=== PATIENT | male | born 1950 | race Hispanic/Latino ===

== ENCOUNTER 2017-03-05 07:35 | Emergency (ER) | payer SELFPAY ==
[2017-03-05 07:41] VITALS: BP 158/81; PULSE 71; RESP 20; TEMP 97.7; O2SAT 99
[2017-03-05] MEDS ORDERED: Alum-Mag Hydrox-Simethicone Susp (30 mL) PO STA (08:15)
--- NOTE | 2017-03-05 08:20 | C.PDOC ---
History Of Present Illness 66 year old male presents to ED for evaluation of constipation for the past few days. Notes that his last normal bowel movement was 3 weeks ago. He reports taking laxative 3 days ago and having small loose stools. Patient also complains of gurgling sensation to left side of his abdomen. Otherwise, denies blood in stool, hematuria, back pain, nausea, vomiting, or fever. Time Seen by Provider: 03/05/17 08:00 Chief Complaint (Nursing): Abdominal Pain History Per: Patient History/Exam Limitations: no limitations Onset/Duration Of Symptoms: Days Current Symptoms Are (Timing): Still Present Radiation Of Pain To:: None Associated Symptoms: Constipation, Urinary Symptoms. denies: Fever, Chills, Nausea, Vomiting, Diarrhea, Loss Of Appetite, Back Pain, Chest Pain Exacerbating Factors: None Alleviating Factors: None Recent travel outside of the [place]: No Additional History Per: Patient Past Medical History Reviewed: Historical Data, Nursing Documentation, Vital Signs Vital Signs: Last Vital Signs Temp 97.7 F 03/05/17 07:40 Pulse 71 03/05/17 07:40 Resp 20 03/05/17 07:40 BP 158/81 H 03/05/17 07:40 Pulse Ox 99 03/05/17 08:25 - Medical History PMH: No Chronic Diseases Surgical History: No Surg Hx Family History: States: Unknown Family Hx - Social History Hx Tobacco Use: Yes (heavy smoker) Hx Alcohol Use: Yes Hx Substance Use: No - Immunization History Hx Tetanus Toxoid Vaccination: No Hx Influenza Vaccination: No Hx Pneumococcal Vaccination: No Review Of Systems Except As Marked, All Systems Reviewed And Found Negative. Constitutional: Negative for: Fever, Chills Gastrointestinal: Positive for: Abdominal Pain, Constipation. Negative for: Nausea, Vomiting, Diarrhea, Hematochezia Genitourinary: Positive for: Dysuria. Negative for: Frequency, Hematuria, Penile Discharge Musculoskeletal: Negative for: Back Pain Physical Exam - Physical Exam Appears: Non-toxic, No Acute Distress Skin: Normal Color, Warm, Dry Head: Atraumatic, Normacephalic Eye(s): bilateral: Normal Inspection Oral Mucosa: Moist Neck: Normal ROM, Supple Chest: Symmetrical Cardiovascular: Rhythm Regular, No Murmur Respiratory: Normal Breath Sounds, No Rales, No Rhonchi, No Wheezing Gastrointestinal/Abdominal: Soft, No Tenderness, No Guarding, No Rebound Back: No CVA Tenderness Extremity: Normal ROM, No Deformity, No Swelling Neurological/Psych: Oriented x3, Normal Speech Gait: Steady ED Course And Treatment O2 Sat by Pulse Oximetry: 99 (RA) Pulse Ox Interpretation: Normal Medical Decision Making Medical Decision Making: Plan: * Obstructive series x-ray * Maalox * Reassess XRay reviewed and shows no signs of obstruction and has fecal retention. Patient advised to increase water and fiber intake. Patient stable for discharge and will give Rx for mag citrate. Advise follow up with PCP. Disposition Counseled Patient/Family Regarding: Diagnosis, Need For Followup, Rx Given - Disposition Referrals: [facility] [Outside] [facility] [Outside] Disposition: HOME/ ROUTINE Disposition Time: 09:00 Condition: GOOD Additional Instructions: Follow up with your primary medical doctor or clinic in 2-5 days for further evaluation. Take medications as indicated to help with constipation. Drink plenty of fluids and eat more fiber. IF symptoms do not improve or symptoms worsen in 1-2 days return to the emergency department. Prescriptions: Docusate [Colace] 100 mg PO Q8 #30 cap Magnesium Citrate [Citrate of Mag] 300 ml PO ONCE PRN #1 bottle PRN Reason: Constipation Instructions: Constipation (DC), High Fiber Diet (ED) Forms: [employer] (Tajik) - POA Present On Arrival: None - Clinical Impression Clinical Impression: Constipation - PA / APPRAISER PERSONAL PROPERTY / Resident Statement MD/DO has reviewed & agrees with the documentation as recorded. - Scribe Statement The provider has reviewed the documentation as recorded by the Sujata Garcia All medical record entries made by the Sujata were at my direction and personally dictated by me. I have reviewed the chart and agree that the record accurately reflects my personal performance of the history, physical exam, medical decision making, and the department course for this patient. I have also personally directed, reviewed, and agree with the discharge instructions and disposition.
[2017-03-05] MEDS ORDERED: Aluminum Hydroxide/Magnesium Hydroxide Susp (30 mL) ONE ×2 (08:35→08:53)
--- NOTE | 2017-03-05 10:19 | RAD ---
PROCEDURE: Radiographs of the chest and abdomen (obstructive series) HISTORY: abd pain constipation COMPARISON: No prior. TECHNIQUE: AP radiograph of the chest, with upright and supine radiographs of the abdomen. FINDINGS: CHEST: Lungs: The lungs are hyperinflated and there is peribronchial thickening with chronic changes in both lungs. . Cardiovascular: Normal size heart. No pulmonary vascular congestion. Pleura: No pleural fluid. No pneumothorax. Other findings: None. ABDOMEN AND PELVIS: Bowel: There is moderate amount of stool in the colon. No evidence of mechanical obstruction. The bowel gas pattern is nonspecific. No differential air-fluid levels. Free air: None. Bones: Within normal limits for the patient's age. Other findings: None. IMPRESSION: Constipation. No evidence of bowel obstruction. COPD. No acute findings.
== END 2017-03-05 09:10 | disposition home or self-care (01) ==
LOC: C.ER 07:35
DX: K59.00 Constipation, unspecified (principal)

== ENCOUNTER 2017-04-05 23:09 | Inpatient (IN) | payer MEDICARE ==
[2017-04-06 00:53] LABS: BASO % 0.5 % (0.0-2.0); EOS # 0.2 K/uL (0.0-0.7); HEMOGLOBIN 13.5 g/dL (12.0-18.0); LYMPH % 24.9 % (20.0-40.0); MEAN CELL VOLUME 87.2 fL (80.0-94.0); MEAN CORPUSCULAR HEMOGLOBIN 29.3 pg (27.0-31.0); MEAN CORPUSCULAR HGB CONC 33.6 g/dL (33.0-37.0); MEAN PLATELET VOLUME 8.3 fL (7.2-11.7); MONO # 0.8 K/uL (0.0-0.8); MONO % 10.1 % (0.0-10.0); NEUT # 4.9 K/uL (1.8-7.0); NEUT % 62.5 % (50.0-75.0); RBC 4.6 Mil/uL (4.40-5.90); RED CELL DISTRIBUTION WIDTH 15.3 % (11.5-14.5); WHITE BLOOD COUNT 7.9 K/uL (4.8-10.8)
[2017-04-06 01:06] LABS: ALB/GLOB RATIO 1.3 (1.0-2.1); ALT/SGPT 33 U/L (21-72); AST/SGOT 29 U/L (17-59); BLOOD UREA NITROGEN 19 mg/dL (9-20); GFR AFRICAN-AMERICAN > 60; GFR NON-AFRICAN AMERICAN > 60; LIPASE 66 U/L (23-300)
[2017-04-06] MEDS ORDERED: Iohexol 240 (50 ml) PO ONE (01:06)
[2017-04-06] MEDS ORDERED: Iohexol 240 (50 ml) ONE (01:13)
--- NOTE | 2017-04-06 01:33 | C.PDOC ---
History Of Present Illness <Ritu Estrada - Last Filed: 04/06/17 06:44> <Cate Razo - Last Filed: 04/06/17 07:33> Patient is a 67 y/o male who presents to the ED with a complaint of constant left lower groin pain all day. Patient notes being very tender but denies any nausea, vomiting, or diarrhea. Patient was seen on 03/05 for constipation and was given docusate. No other physical complaints at this time. (Ritu Estrada N) History Per: Patient History/Exam Limitations: no limitations Onset/Duration Of Symptoms: Hrs (earlier today), Persistent Current Symptoms Are (Timing): Still Present Location Of Pain/Discomfort: Other (lower groin) Associated Symptoms: denies: Nausea, Vomiting, Diarrhea Recent travel outside of the [place]: No <Ritu Estrada - Last Filed: 04/06/17 06:44> <Cate Razo - Last Filed: 04/06/17 07:33> Time Seen by Provider: 04/05/17 23:55 Chief Complaint (Nursing): Abdominal Pain Past Medical History Reviewed: Historical Data, Nursing Documentation, Vital Signs - Medical History PMH: No Chronic Diseases Surgical History: No Surg Hx Family History: States: Unknown Family Hx - Social History Hx Tobacco Use: Yes (heavy smoker) Hx Alcohol Use: No Hx Substance Use: No - Immunization History Hx Tetanus Toxoid Vaccination: No Hx Influenza Vaccination: No Hx Pneumococcal Vaccination: No <Ritu Estrada - Last Filed: 04/06/17 06:44> Vital Signs: Last Vital Signs Temp 98.7 F 04/05/17 23:23 Pulse 78 04/05/17 23:23 Resp 20 04/05/17 23:23 BP 125/70 04/05/17 23:23 Pulse Ox 98 04/06/17 06:47 Review Of Systems Gastrointestinal: Positive for: Abdominal Pain (lower groin pain and tenderness) . Negative for: Nausea, Vomiting, Diarrhea <Ritu Estrada - Last Filed: 04/06/17 06:44> Physical Exam - Physical Exam Appears: Well, Non-toxic, No Acute Distress, In Acute Distress Skin: Normal Color, Warm, Dry Head: Atraumatic, Normacephalic Eye(s): bilateral: Normal Inspection Ear(s): Bilateral: Normal Oral Mucosa: Moist Tongue: Normal Appearing Lips: Normal Appearing Neck: Normal Chest: Symmetrical Cardiovascular: Rhythm Regular, No Murmur Respiratory: Normal Breath Sounds, No Rales, No Rhonchi, No Wheezing Gastrointestinal/Abdominal: Soft, No Tenderness, No Organomegaly, No Mass, No Distention, Guarding, Rebound, No Hernia Male Genital: Normal Inspection, No Testicular Tenderness, No Testicular Swelling Neurological/Psych: Oriented x3, Normal Speech, Normal Cognition <Ritu Estrada - Last Filed: 04/06/17 06:44> ED Course And Treatment - Laboratory Results Result Diagrams: 04/06/17 00:48 04/06/17 00:48 O2 Sat by Pulse Oximetry: 98 Progress Note: CT A/P and CXR ordered. Omnipaque and Toradol adminsitered. Case discussed with instructor adjunct surgical technician at 4:30am. <Ritu Estrada - Last Filed: 04/06/17 06:44> - Laboratory Results Result Diagrams: 04/06/17 00:48 04/06/17 00:48 <Cate Razo - Last Filed: 04/06/17 07:33> Progress <Ritu Estrada - Last Filed: 04/06/17 06:44> - Data Reviewed Data Reviewed: Lab, Diagnostic imaging <Cate Razo - Last Filed: 04/06/17 07:33> - Re-Evaluation Re-evaluation Note: 04/06/17 07:32 S/O PER DR ESTRADA PRIOR D/W DR ARSHAD AWARE OF ER FINDINGS, PT TO BE ADMITTED TO MEDICINE. PER RN PER SIGNOUT, PT ACCEPTED TO DR Vidya GARC[facility]. (Cate Razo) Medical Decision Making <Ritu Estrada - Last Filed: 04/06/17 06:44> <Cate Razo - Last Filed: 04/06/17 07:33> Medical Decision Making: lab results: white count 7.[address] shows free air consistent with perforated viscous./ morphine given/ IV hydrtion given/ broad spectrum abc given. case discussed with surgery. Paged Dr. Nicole for admission x 4 since 5 am pending call back. (Ritu Estrada) Disposition <Ritu Estrada - Last Filed: 04/06/17 06:44> Counseled Patient/Family Regarding: Studies Performed, Diagnosis - Disposition Disposition Time: 07:32 - POA Present On Arrival: None <Cate Razo - Last Filed: 04/06/17 07:33> - Disposition Disposition: HOSPITALIZED Condition: STABLE Forms: [employer] ([place]er) - Clinical Impression Clinical Impression: Abdominal bloating, Abdominal distension, Perforated abdominal viscus, Stricture of sigmoid colon, Abdominal pain, Acute diverticulitis - Scribe Statement The provider has reviewed the documentation as recorded by the Scribe <Ritu Estrada - Last Filed: 04/06/17 06:44> <DungCate - Last Filed: 04/06/17 07:33> - Scribe Statement Luciana To All medical record entries made by the Scribe were at my direction and personally dictated by me. I have reviewed the chart and agree that the record accurately reflects my personal performance of the history, physical exam, medical decision making, and the department course for this patient. I have also personally directed, reviewed, and agree with the discharge instructions and disposition. (Ritu Estrada) Decision To Admit <Ritu Estrada - Last Filed: 04/06/17 06:44> - Pt Status Changed To: Hospital Disposition Of: Inpatient - Admit Certification Admit to Inpatient:: After my assessment, the patient will require hospitalization for at least two midnights. This is because of the severity of symptoms shown, intensity of services needed, and/or the medical risk in this patient being treated as an outpatient. - InPatient: Physician Admission Certification:: SEE NOTE - . Bed Request Type: Regular Admitting Physician: Lucy aGrcia <DungCate - Last Filed: 04/06/17 07:33> - . Patient Diagnosis: Abdominal bloating, Abdominal distension, Perforated abdominal viscus, Stricture of sigmoid colon, Abdominal pain, Acute diverticulitis
[2017-04-06] MEDS ORDERED: Iohexol 350mg/ml 100 ML ONE (02:05)
--- NOTE | 2017-04-06 04:20 | CT ---
EXAM: CT Abdomen and Pelvis With Intravenous Contrast EXAM DATE/TIME: 04/06/2017 12:37 AM CLINICAL HISTORY: 67 years old, male; Pain; Abdominal pain; Patient HX: 01-14-16; Additional info: Abd pain TECHNIQUE: Axial computed tomography images of the abdomen and pelvis with intravenous contrast. All CT scans at this facility use one or more dose reduction techniques, viz.: automated exposure control; ma/kV adjustment per patient size (including targeted exams where dose is matched to indication; i.e. head); or iterative reconstruction technique. Coronal and sagittal reformatted images were created and reviewed. CONTRAST: 100 mL of [id number] administered intravenously. COMPARISON: Prior CT abdomen and pelvis of 2016-01-14 FINDINGS: LOWER THORAX: Small hiatal hernia. ABDOMEN: LIVER: Fatty infiltration of the liver. GALLBLADDER AND BILE DUCTS: No CT evidence of acute cholecystitis. No evidence of significant biliary ductal dilatation. PANCREAS: No CT evidence of acute pancreatitis. SPLEEN: No acute abnormality of the spleen identified. ADRENALS: No acute abnormality of the adrenal glands identified. KIDNEYS AND URETERS: Low density lesions in the kidneys bilaterally, most likely representing cysts. The largest of these, in the left kidney, measures 8 mm. STOMACH AND BOWEL: See below. Marked, segmental wall thickening of the proximal sigmoid colon, associated with infiltration of the pericolonic fat. This was also seen on the prior CT, and is suspicious for a stricture. APPENDIX: Appendix is seen, and is within normal limits in appearance. PELVIS: BLADDER: No acute abnormality of the bladder identified. REPRODUCTIVE: Prostate gland is enlarged. ABDOMEN and PELVIS: INTRAPERITONEAL SPACE: Free intraperitoneal air, compatible with a bowel perforation, in the absence of recent surgery. The site of perforation is most likely the mid descending colon. There are findings suspicious for acute diverticulitis of the mid descending colon. There is pericolonic fat stranding, suspicious for inflammation, and segmental wall thickening, in the vicinity of multiple colonic diverticula. No evidence of focal fluid collection or abscess. BONES/JOINTS: Bony structures appear demineralized. SOFT TISSUES: No acute abnormality of the visualized soft tissues is seen. VASCULATURE: Atherosclerotic calcification. No evidence of abdominal aortic aneurysm. LYMPH NODES: No evidence of diffuse lymphadenopathy. IMPRESSION: - Free intraperitoneal air, compatible with a bowel perforation. The site of perforation appears to be the descending colon, where there is evidence of acute diverticulitis. - Marked, segmental wall thickening of the proximal sigmoid colon, suspicious for a stricture. A neoplastic stricture, i.e., an annular neoplasm of the colon, is not excluded, and recommend further workup. - See above for remaining findings.
[2017-04-06] MEDS ORDERED: Vancomycin 1 gm/NS 200 ml 1 GM/200 ML BAG IVPB STA (04:32)
[2017-04-06] MEDS ORDERED: Piperacill/Tazo 4.5gm in Dex 4.5 GM/100 ML BAG IVPB STA (04:32)
[2017-04-06] MEDS ORDERED: Sodium Chloride 0.9% 1,000 ML IV ONE (04:34)
--- NOTE | 2017-04-06 05:19 | CP.PCM.CON ---
<Deandre Concepcion - Last Filed: 04/06/17 05:12> History of Present Illness - History of Present Illness History of Present Illness: General Surgery Consult Note for Dr. Arellano This is a 67M with no PMH due not seeing a doctor. He reports one year of abdominal pain, sometimes post prandial sometimes not in connection to meals. It responds well to antacids. He reports that the pain was worse today which prompted him to go to the ED. He reports that the pain is now better than it was when he decided to go to the ED. He denies any changes in bowel habits, he denies any bloody or tarry stools, however he reports that he strains often to go to the bathroom. Denies any nausea vomiting fevers chills chest pain. CT scan in the ED shows extra luminal air. PMH: Denies PSH: Finger replantation ALL: NKDA Social: Remote history of ETOH, 40 pack years, denies drugs Review of Systems - Constitutional Constitutional: absent: Anorexia, Chills - EENT Eyes: absent: Blind Spots, Blurred Vision - Cardiovascular Cardiovascular: absent: Chest Pain, Dyspnea - Respiratory Respiratory: absent: Dyspnea - Gastrointestinal Gastrointestinal: absent: Abdominal Pain, Diarrhea - Genitourinary Genitourinary: absent: Difficulty Urinating, Dysuria Past Patient History - Infectious Disease Hx of Infectious Diseases: None - Past Social History Smoking Status: Heavy Smoker > 10 Cigarettes Daily - NEUROLOGICAL Hx Vertigo: Yes - PSYCHIATRIC Hx Substance Use: No - SURGICAL HISTORY Hx Surgeries: No - ANESTHESIA Hx Anesthesia: No Meds Allergies/Adverse Reactions: Allergies Allergy/AdvReac Type Severity Reaction Status Date / Time No Known Allergies Allergy Verified 04/05/17 23:26 - Medications Medications: Current Medications Vancomycin/Sodium Chloride (Vancomycin 1 Gm/Ns 200 Ml) 1 gm in 200 mls @ 133 mls/hr IVPB STAT STA Stop: 04/06/17 06:02 Sodium Chloride (Sodium Chloride 0.9%) 1,000 mls @ 1,000 mls/hr IV .Q1H ONE Stop: 04/06/17 05:33 Physical Exam - Constitutional Appears: Non-toxic, No Acute Distress - Head Exam Head Exam: ATRAUMATIC, NORMOCEPHALIC - Eye Exam Eye Exam: EOMI - ENT Exam ENT Exam: Mucous Membranes Moist - Respiratory Exam Respiratory Exam: NORMAL BREATHING PATTERN - Cardiovascular Exam Cardiovascular Exam: +S1, +S2 - GI/Abdominal Exam GI & Abdominal Exam: Distended, Guarding, Hernia, Soft. absent: Rigid - Extremities Exam Extremities exam: Positive for: normal inspection - Neurological Exam Neurological exam: Alert, Oriented x3 - Skin Skin Exam: Dry, Intact Results - Vital Signs Recent Vital Signs: Last Vital Signs Temp 98.7 F 04/05/17 23:23 Pulse 78 04/05/17 23:23 Resp 20 04/05/17 23:23 BP 125/70 04/05/17 23:23 Pulse Ox 98 04/06/17 05:00 - Labs Result Diagrams: 04/06/17 00:48 04/06/17 00:48 Labs: Laboratory Results - last 24 hr 04/06/17 04/06/17 00:48 00:48 WBC 7.9 RBC 4.60 Hgb 13.5 Hct 40.1 MCV 87.2 MCH 29.3 MCHC 33.6 RDW 15.3 H Plt Count 258 MPV 8.3 Neut % (Auto) 62.5 Lymph % (Auto) 24.9 [place] % (Auto) 10.1 H Eos % (Auto) 2.0 Baso % (Auto) 0.5 Neut # 4.9 Lymph # 2.0 [place] # 0.8 Eos # 0.2 Baso # 0.0 Sodium 132 Potassium 4.5 Chloride 96 L Carbon Dioxide 28 Anion Gap 13 BUN 19 Creatinine 0.9 Est GFR ( Amer) > 60 Est GFR (Non-Af Amer) > 60 Random Glucose 99 Calcium 8.0 L Total Bilirubin 0.5 AST 29 ALT 33 Alkaline Phosphatase 64 Total Protein 7.1 Albumin 4.0 Globulin 3.1 Albumin/Globulin Ratio 1.3 Lipase 66 Assessment & Plan - Assessment and Plan (Free Text) Assessment: This is a 67M with a extraluminal air on CT scan and LLQ pain NPO IVF serial abdominal exams trend LFTs recommend GI evaluation D/W Dr. Adan Concepcion PGY2 <Ritu Zhao N - Last Filed: 04/06/17 06:48> Meds - Medications Medications: Current Medications Sodium Chloride (Sodium Chloride 0.9%) 1,000 mls @ 100 mls/hr IV .Q10H [id number] Last Admin: 04/06/17 05:55 Dose: 100 mls/hr Results - Vital Signs Recent Vital Signs: Last Vital Signs Temp 98.7 F 04/05/17 23:23 Pulse 78 04/05/17 23:23 Resp 20 04/05/17 23:23 BP 125/70 04/05/17 23:23 Pulse Ox 98 04/06/17 06:47 - Labs Result Diagrams: 04/06/17 00:48 04/06/17 00:48 Labs: Laboratory Results - last 24 hr 04/06/17 04/06/17 04/06/17 00:48 00:48 06:07 WBC 7.9 RBC 4.60 Hgb 13.5 Hct 40.1 MCV 87.2 MCH 29.3 MCHC 33.6 RDW 15.3 H Plt Count 258 MPV 8.3 Neut % (Auto) 62.5 Lymph % (Auto) 24.9 [place] % (Auto) 10.1 H Eos % (Auto) 2.0 Baso % (Auto) 0.5 Neut # 4.9 Lymph # 2.0 [place] # 0.8 Eos # 0.2 Baso # 0.0 PT 11.9 INR 1.1 APTT 31 Sodium 132 Potassium 4.5 Chloride 96 L Carbon Dioxide 28 Anion Gap 13 BUN 19 Creatinine 0.9 Est GFR ( Amer) > 60 Est GFR (Non-Af Amer) > 60 Random Glucose 99 Calcium 8.0 L Total Bilirubin 0.5 AST 29 ALT 33 Alkaline Phosphatase 64 Total Protein 7.1 Albumin 4.0 Globulin 3.1 Albumin/Globulin Ratio 1.3 Lipase 66 Critical Care Time - Critical Care Note Total Time (in mins): 30 Documented critical care: time excludes all time spent performing seperately billable procedures.
[2017-04-06] MEDS: Sodium Chloride 0.9% 1,000 ML IV SCH ×2 (05:55→16:23)
[2017-04-06 06:22] LABS: INR 1.1; PROTHROMBIN TIME 11.9 SECONDS (9.7-12.2)
--- NOTE | 2017-04-06 08:53 | RAD ---
Chest x-ray single frontal view History: Abdominal pain. Comparison: None available. Findings: No focal infiltrate or effusion. Heart size within normal limits. Impression: No focal infiltrate or effusion.
[2017-04-06 12:06] LABS: VENOUS BLOOD GAS BASE EXCESS -1.1 mmol/L (0.0-2.0); VENOUS BLOOD GAS PCO2 45 mmHg (40-60); VENOUS BLOOD GAS PO2 25 mm/Hg (30-55); VENOUS BLOOD PH 7.35 (7.32-7.43)
[2017-04-06] MEDS: Ciprofloxacin 200mg/100ml D5W 100 ML IVPB SCH ×2 (16:00→17:50)
[2017-04-06] MEDS: metroNIDAZOLE IV 500 mg/100 ml 250 MG in Premixed IV 1 EA IVPB SCH ×3 (17:19→18:15)
[2017-04-07] MEDS: metroNIDAZOLE IV 500 mg/100 ml 250 MG in Premixed IV 1 EA IVPB SCH ×3 (01:03→18:00)
[2017-04-07] MEDS: Sodium Chloride 0.9% 1,000 ML IV SCH ×4 (01:30→21:53)
[2017-04-07] MEDS: Ciprofloxacin 200mg/100ml D5W 100 ML IVPB SCH ×2 (04:03→16:21)
--- NOTE | 2017-04-07 07:31 | CP.PCM.CON ---
<Gila Coles - Last Filed: 04/07/17 12:15> History of Present Illness - History of Present Illness History of Present Illness: GI Fellow PGY4 Consult Note This is a 67yM with no pmhx presenting with complaints of LLQ pain for a few worsening prior to ER arrival. Pt reports that he had once episode of diverticulitis last year and per records this was 12/2015 when he came to the ER and CT imaging showed diverticulitis and possible abscess pt was to be admitted but left AMA on po abx. He reports since then he has been feeling better but a few weeks ago he started having pain and severe constipation. He came to the ER 02/2017 and was discharged with stool softer for bowel regimen. He says since taking tool softeners he has a BM daily, soft, normal with no straining, no melena or hematochezia. His pain got worse so decided to come to ER last night and was found to have free air on CT scan and bowel perforation of descending colon and acute diverticulitis, segmental wall thickening concerning for stricture vs neoplasm. Pt denies any fevers, chills, nausea or vomiting. Pt was started on IV abx and seen by surgery with conservative therapy at this time. Pt denies any unintentional weight loss. Pt reports he feels great with no abdominal pain since being on abx. Last Bm was last night, small amount. No prior endoscopic evaluation. ROS: A 12pt ROS was negative except as above PmHx: Dental issues now has dentures PsHx: None FHx: Father with lung cancer, no colon or pancreatic cancer SHx: pt smoked 1/2 ppd since age 16, hx of heavy alcohol use for 3 yrs about 30yrs ago including beer and vodka Past Patient History - Infectious Disease Hx of Infectious Diseases: None - Past Social History Smoking Status: Never Smoked - NEUROLOGICAL Hx Vertigo: Yes - MUSCULOSKELETAL/RHEUMATOLOGICAL Hx Falls: No Other/Comment: broken foot R,no surgery - PSYCHIATRIC Hx Substance Use: No - SURGICAL HISTORY Hx Surgeries: No - ANESTHESIA Hx Anesthesia: No Meds Allergies/Adverse Reactions: Allergies Allergy/AdvReac Type Severity Reaction Status Date / Time No Known Allergies Allergy Verified 04/05/17 23:26 - Medications Medications: Current Medications Famotidine (Pepcid) 20 mg IVP Q12 [facility] Last Admin: 04/06/17 21:29 Dose: 20 mg Hydromorphone HCl (Dilaudid) 0.5 mg IVP Q4H PRN PRN Reason: Pain, moderate (4-7) Last Admin: 04/06/17 10:25 Dose: 0.5 mg Sodium Chloride (Sodium Chloride 0.9%) 1,000 mls @ 100 mls/hr IV .Q10H [facility] Last Admin: 04/07/17 01:30 Dose: Not Given Ciprofloxacin (Cipro 200mg/100ml D5w) 100 mls @ 67 mls/hr IVPB Q12H [facility] Last Admin: 04/07/17 04:03 Dose: 67 mls/hr Metronidazole 250 mg/ (Miscellaneous) 50 mls @ 100 mls/hr IVPB Q8H [facility] Last Admin: 04/07/17 01:03 Dose: 100 mls/hr Pneumococcal Polyvalent Vaccine (Pneumovax 23 Vaccine) 0.5 ml IM .ONCE ONE Stop: 04/07/17 10:01 Physical Exam - Constitutional Appears: Non-toxic, No Acute Distress - Head Exam Head Exam: ATRAUMATIC, NORMAL INSPECTION, NORMOCEPHALIC - Eye Exam Eye Exam: EOMI, Normal appearance, PERRL Pupil Exam: PERRL - ENT Exam ENT Exam: Mucous Membranes Moist, Normal Exam - Neck Exam Neck exam: Positive for: Normal Inspection - Respiratory Exam Respiratory Exam: Clear to Auscultation Bilateral, NORMAL BREATHING PATTERN - Cardiovascular Exam Cardiovascular Exam: RRR - GI/Abdominal Exam GI & Abdominal Exam: Normal Bowel Sounds, Soft. absent: Distended, Guarding, Organomegaly - Rectal Exam Rectal Exam: Deferred - Extremities Exam Extremities exam: Positive for: full ROM, normal inspection - Back Exam Back exam: NORMAL INSPECTION - Neurological Exam Neurological exam: Alert, Oriented x3 - Psychiatric Exam Psychiatric exam: Normal Affect, Normal Mood - Skin Skin Exam: Dry, Intact, Normal Color, Warm Results - Vital Signs Recent Vital Signs: Last Vital Signs Temp 98.5 F 04/07/17 00:00 Pulse 81 04/07/17 00:00 Resp 20 04/07/17 00:00 BP 129/71 04/07/17 00:00 Pulse Ox 97 04/07/17 00:00 - Labs Result Diagrams: 04/07/17 11:23 04/06/17 00:48 Labs: Laboratory Results - last 24 hr 04/06/17 12:00 pO2 25 L VBG pH 7.35 VBG pCO2 45 VBG HCO3 22.5 VBG Total CO2 26.2 VBG O2 Sat (Calc) 46.4 VBG Base Excess -1.1 L VBG Potassium 4.0 Sodium 136.0 Chloride 107.0 Glucose 104 Lactate 1.0 Venous Blood Potassium 4.0 Assessment & Plan - Assessment and Plan (Free Text) Assessment: This is a 67yM presenting with abdominal pain for a few weeks. 1. Complicates acute diverticulitis with perforation 2. Possible underlying stricture vs neoplasm Plan: -Continue supportive care with pain control and anti-emetics -Continue IV abx cipro/flagyl -Bowel perforation with diverticulitis, surgical recommendations appreciated, monitor serial abdominal exams -NPO -Pt with hx of diverticulitis past now with perforation, pt will need colonoscopy as an outpt in 8weeks to r/o underlying malignancy -Will continue to follow pt closely <Florencio London Y - Last Filed: 04/07/17 16:01> Meds - Medications Medications: Current Medications Famotidine (Pepcid) 20 mg IVP Q12 [facility] Last Admin: 04/07/17 09:33 Dose: 20 mg Hydromorphone HCl (Dilaudid) 0.5 mg IVP Q4H PRN PRN Reason: Pain, moderate (4-7) Last Admin: 04/06/17 10:25 Dose: 0.5 mg Sodium Chloride (Sodium Chloride 0.9%) 1,000 mls @ 100 mls/hr IV .Q10H [facility] Last Admin: 04/07/17 11:55 Dose: Not Given Ciprofloxacin (Cipro 200mg/100ml D5w) 100 mls @ 67 mls/hr IVPB Q12H [facility] Last Admin: 04/07/17 04:03 Dose: 67 mls/hr Metronidazole 250 mg/ (Miscellaneous) 50 mls @ 100 mls/hr IVPB Q8H [facility] Last Admin: 04/07/17 08:31 Dose: 100 mls/hr Results - Vital Signs Recent Vital Signs: Last Vital Signs Temp 98.2 F 04/07/17 08:41 Pulse 59 L 04/07/17 08:41 Resp 20 01/10/18 08:41 BP 129/66 04/07/17 08:41 Pulse Ox 97 04/07/17 08:41 - Labs Result Diagrams: 04/07/17 11:23 04/06/17 00:48 Labs: Laboratory Results - last 24 hr 04/07/17 11:23 WBC 10.7 RBC 4.26 L Hgb 12.6 Hct 37.4 MCV 87.8 MCH 29.6 MCHC 33.7 RDW 15.4 H Plt Count 264 MPV 8.7 Attending/Attestation - Attestation I have personally seen and examined this patient.: Yes I have fully participated in the care of the patient.: Yes I have reviewed all pertinent clinical information: Yes Notes (Text): 04/07/17 15:54 I have seen and examined patient with GI fellow. Agree with above documentation with the following additions. In brief, this is a 67 year old male with prior medical history of diverticulitis who presents to hospital with complaint of abdominal pain. He describes progressively worse LLQ pain, 10/10 intensity over the past 2 days that was associated with nausea. He admits to ongoing chronic constipation with frequent passage of hard stool. He had similar complaint last month and was discharged from hospital ER with aggressive bowel regimen. He also had an episode of diverticulitis complicated by albina-colonic abscess in 2016 which responded to oral antibiotic therapy. He denies fever/chills, weight loss, rectal bleeding, vomiting, or change in bowel habits. No prior endoscopic evaluation. Abdominal pain, acute complicated diverticulitis CT imaging reviewed by me showing descending colon diverticulitis with presence of intraabdominal free air consistent with bowel perforation, segemental narrowing of colon in descending/sigmoid colon region - NPO - Continue with antibiotic therapy - Pain control - Follow up surgical recommendations, serial abdominal examinations - Patient will certainly require colonoscopy evaluation electively as outpatient following resolution of acute symptoms within 2 months in order to exclude for underlying malignancy and potential inflammatory vs malignant stricture evaluation. Will continue to monitor patient clinical course.
--- NOTE | 2017-04-07 08:07 | CP.PCM.HP ---
Past Patient History - Infectious Disease Hx of Infectious Diseases: None - Past Social History Smoking Status: Never Smoked - NEUROLOGICAL Hx Vertigo: Yes - MUSCULOSKELETAL/RHEUMATOLOGICAL Hx Falls: No Other/Comment: broken foot R,no surgery - PSYCHIATRIC Hx Substance Use: No - SURGICAL HISTORY Hx Surgeries: No - ANESTHESIA Hx Anesthesia: No Meds Allergies/Adverse Reactions: Allergies Allergy/AdvReac Type Severity Reaction Status Date / Time No Known Allergies Allergy Verified 04/05/17 23:26 Physical Exam - Constitutional Appears: Well - Head Exam Head Exam: ATRAUMATIC, NORMAL INSPECTION, NORMOCEPHALIC - Eye Exam Eye Exam: EOMI, Normal appearance, PERRL Pupil Exam: NORMAL ACCOMODATION, PERRL - ENT Exam ENT Exam: Mucous Membranes Moist, Normal Exam - Neck Exam Neck exam: Positive for: Normal Inspection - Respiratory Exam Respiratory Exam: Decreased Breath Sounds - Cardiovascular Exam Cardiovascular Exam: REGULAR RHYTHM, +S1, +S2 - GI/Abdominal Exam GI & Abdominal Exam: Diminished Bowel Sounds, Soft - Rectal Exam Rectal Exam: Deferred Results - Vital Signs Recent Vital Signs: Last Vital Signs Temp 98.5 F 04/07/17 00:00 Pulse 81 04/07/17 00:00 Resp 20 04/07/17 00:00 BP 129/71 04/07/17 00:00 Pulse Ox 97 04/07/17 00:00 - Labs Result Diagrams: 04/06/17 00:48 04/06/17 00:48 Labs: Laboratory Results - last 24 hr 04/06/17 12:00 pO2 25 L VBG pH 7.35 VBG pCO2 45 VBG HCO3 22.5 VBG Total CO2 26.2 VBG O2 Sat (Calc) 46.4 VBG Base Excess -1.1 L VBG Potassium 4.0 Sodium 136.0 Chloride 107.0 Glucose 104 Lactate 1.0 Venous Blood Potassium 4.0
--- NOTE | 2017-04-07 09:36 | CP.PCM.PN ---
Subjective - Date & Time of Evaluation Date of Evaluation: 04/07/17 Time of Evaluation: 09:34 - Subjective Subjective: Surgery Pt s&e. NAEON. Denies F/C/n/v/D/CP/SOB. + flatus. + void. Pt is hungry. Pain improved. Objective - Vital Signs/Intake and Output Vital Signs (last 24 hours): Temp Pulse Resp BP Pulse Ox 98.2 F 59 L 20 129/66 97 04/07/17 08:41 04/07/17 08:41 04/07/17 08:41 04/07/17 08:41 04/07/17 08:41 Intake and Output: 04/07/17 04/07/17 06:59 18:59 Intake Total 1200 Output Total 650 Balance 550 - Medications Medications: Current Medications Famotidine (Pepcid) 20 mg IVP Q12 [facility] Last Admin: 04/06/17 21:29 Dose: 20 mg Hydromorphone HCl (Dilaudid) 0.5 mg IVP Q4H PRN PRN Reason: Pain, moderate (4-7) Last Admin: 04/06/17 10:25 Dose: 0.5 mg Sodium Chloride (Sodium Chloride 0.9%) 1,000 mls @ 100 mls/hr IV .Q10H [facility] Last Admin: 04/07/17 08:31 Dose: 100 mls/hr Ciprofloxacin (Cipro 200mg/100ml D5w) 100 mls @ 67 mls/hr IVPB Q12H [facility] Last Admin: 04/07/17 04:03 Dose: 67 mls/hr Metronidazole 250 mg/ (Miscellaneous) 50 mls @ 100 mls/hr IVPB Q8H [facility] Last Admin: 04/07/17 08:31 Dose: 100 mls/hr Pneumococcal Polyvalent Vaccine (Pneumovax 23 Vaccine) 0.5 ml IM .ONCE ONE Stop: 04/07/17 10:01 - Labs Labs: 04/06/17 00:48 04/06/17 00:48 PT 11.9 SECONDS (9.7-12.2) 04/06/17 06:07 INR 1.1 04/06/17 06:07 APTT 31 SECONDS (21-34) 04/06/17 06:07 - Constitutional Appears: No Acute Distress - Head Exam Head Exam: ATRAUMATIC, NORMAL INSPECTION, NORMOCEPHALIC - Eye Exam Eye Exam: EOMI, Normal appearance, PERRL Pupil Exam: NORMAL ACCOMODATION, PERRL - ENT Exam ENT Exam: Mucous Membranes Moist, Normal Exam - Neck Exam Neck Exam: Full ROM, Normal Inspection. absent: Lymphadenopathy - Respiratory Exam Respiratory Exam: Clear to Ausculation Bilateral, NORMAL BREATHING PATTERN - Cardiovascular Exam Cardiovascular Exam: REGULAR RHYTHM, +S1, +S2. absent: Murmur - GI/Abdominal Exam GI & Abdominal Exam: Soft, Tenderness, Normal Bowel Sounds. absent: Distended, Firm, Guarding, Rigid Additional comments: Low abd TTP - Extremities Exam Extremities Exam: Full ROM, Normal Capillary Refill, Normal Inspection. absent : Joint Swelling, Pedal Edema - Back Exam Back Exam: NORMAL INSPECTION - Neurological Exam Neurological Exam: Alert, Awake, CN II-XII Intact, Normal Gait, Oriented x3 - Psychiatric Exam Psychiatric exam: Normal Affect, Normal Mood - Skin Skin Exam: Dry, Intact, Normal Color, Warm Assessment and Plan - Assessment and Plan (Free Text) Assessment: This is a 67M with LLQ pain , sigmoid stricture: Improving Afebrile. No leukocytosis NPO. May advance diet later today. ABX IVF serial abdominal exams GI rec: Out pt colonoscopy Will D/W Dr. Arellano
[2017-04-07] MEDS ORDERED: Influenza Vaccine 60 mcg/0.5 mL SYR (4YR UP) IM ONE (10:00)
[2017-04-07] MEDS ORDERED: Pneumococcal 23-Valent Vaccine IM ONE (10:00)
[2017-04-07 11:33] LABS: HEMOGLOBIN 12.6 g/dL (12.0-18.0); MEAN CELL VOLUME 87.8 fL (80.0-94.0); MEAN CORPUSCULAR HEMOGLOBIN 29.6 pg (27.0-31.0); MEAN CORPUSCULAR HGB CONC 33.7 g/dL (33.0-37.0); MEAN PLATELET VOLUME 8.7 fL (7.2-11.7); RBC 4.26 Mil/uL (4.40-5.90); RED CELL DISTRIBUTION WIDTH 15.4 % (11.5-14.5); WHITE BLOOD COUNT 10.7 K/uL (4.8-10.8)
[2017-04-08 00:27] VITALS: RESP 20
[2017-04-08] MEDS: metroNIDAZOLE IV 500 mg/100 ml 250 MG in Premixed IV 1 EA IVPB SCH ×2 (01:06→08:34)
[2017-04-08] MEDS: Ciprofloxacin 200mg/100ml D5W 100 ML IVPB SCH ×2 (04:09→16:18)
--- NOTE | 2017-04-08 07:20 | CP.PCM.PN ---
<Gila Coles - Last Filed: 04/08/17 08:30> Subjective - Date & Time of Evaluation Date of Evaluation: 04/08/17 Time of Evaluation: 06:45 - Subjective Subjective: GI Fellow PGY4 Progress Note Pt seen and evaluated at bedside, pt doing well. Reports having BM. Tolerating diet had some pain in LLQ overnight. ROS: A 12pt ROS was negative except as above. Objective - Vital Signs/Intake and Output Vital Signs (last 24 hours): Temp Pulse Resp BP Pulse Ox 99.2 F 70 20 124/69 98 04/07/17 23:30 04/07/17 23:30 04/07/17 23:30 04/07/17 23:30 04/07/17 23:30 Intake and Output: 04/08/17 04/08/17 06:59 18:59 Intake Total 1300 Balance 1300 - Medications Medications: Current Medications Famotidine (Pepcid) 20 mg IVP Q12 [facility] Last Admin: 04/07/17 21:53 Dose: 20 mg Hydromorphone HCl (Dilaudid) 0.5 mg IVP Q4H PRN PRN Reason: Pain, moderate (4-7) Last Admin: 04/08/17 05:56 Dose: 0.5 mg Ciprofloxacin (Cipro 200mg/100ml D5w) 100 mls @ 67 mls/hr IVPB Q12H [facility] Last Admin: 04/08/17 04:09 Dose: 67 mls/hr Metronidazole 250 mg/ (Miscellaneous) 50 mls @ 100 mls/hr IVPB Q8H [facility] Last Admin: 04/08/17 01:06 Dose: 100 mls/hr - Labs Labs: 04/07/17 11:23 04/06/17 00:48 PT 11.9 SECONDS (9.7-12.2) 04/06/17 06:07 INR 1.1 04/06/17 06:07 APTT 31 SECONDS (21-34) 04/06/17 06:07 - Constitutional Appears: Non-toxic, No Acute Distress - Head Exam Head Exam: ATRAUMATIC, NORMAL INSPECTION, NORMOCEPHALIC - Eye Exam Eye Exam: EOMI, PERRL - ENT Exam ENT Exam: Mucous Membranes Moist - Neck Exam Neck Exam: Full ROM - Respiratory Exam Respiratory Exam: Clear to Ausculation Bilateral, NORMAL BREATHING PATTERN - Cardiovascular Exam Cardiovascular Exam: REGULAR RHYTHM, RRR - GI/Abdominal Exam GI & Abdominal Exam: Firm, Soft, Normal Bowel Sounds - Extremities Exam Extremities Exam: Full ROM, Normal Inspection - Back Exam Back Exam: NORMAL INSPECTION - Neurological Exam Neurological Exam: Alert, Awake, Oriented x3 - Psychiatric Exam Psychiatric exam: Normal Affect, Normal Mood - Skin Skin Exam: Dry, Intact, Normal Color, Warm Assessment and Plan - Assessment and Plan (Free Text) Assessment: This is a 67yM presenting with abdominal pain for a few weeks. 1. Complicated acute diverticulitis with perforation 2. Possible underlying stricture vs neoplasm Plan: -Continue supportive care with pain control and anti-emetics -Continue IV abx cipro/flagyl -Bowel perforation with diverticulitis, surgical recommendations appreciated, monitor serial abdominal exams -Advance diet as tolerated -Pt with hx of diverticulitis past now with perforation, pt will need colonoscopy as an outpt in 8weeks to r/o underlying malignancy -Please call with any questions <Florencio London - Last Filed: 04/08/17 10:18> Objective - Vital Signs/Intake and Output Vital Signs (last 24 hours): Temp Pulse Resp BP Pulse Ox 97.8 F 61 20 124/64 97 04/08/17 08:03 04/08/17 08:03 04/08/17 08:03 04/08/17 08:03 04/08/17 08:03 Intake and Output: 04/08/17 04/08/17 06:59 18:59 Intake Total 1300 Balance 1300 - Medications Medications: Current Medications Famotidine (Pepcid) 20 mg IVP Q12 [facility] Last Admin: 04/08/17 09:26 Dose: 20 mg Hydromorphone HCl (Dilaudid) 0.5 mg IVP Q4H PRN PRN Reason: Pain, moderate (4-7) Last Admin: 04/08/17 05:56 Dose: 0.5 mg Ciprofloxacin (Cipro 200mg/100ml D5w) 100 mls @ 67 mls/hr IVPB Q12H [facility] Last Admin: 04/08/17 04:09 Dose: 67 mls/hr Metronidazole 250 mg/ (Miscellaneous) 50 mls @ 100 mls/hr IVPB Q8H [facility] Last Admin: 04/08/17 08:34 Dose: 100 mls/hr - Labs Labs: 04/07/17 11:23 04/06/17 00:48 PT 11.9 SECONDS (9.7-12.2) 04/06/17 06:07 INR 1.1 04/06/17 06:07 APTT 31 SECONDS (21-34) 04/06/17 06:07 Attending/Attestation - Attestation I have personally seen and examined this patient.: Yes I have fully participated in the care of the patient.: Yes I have reviewed all pertinent clinical information, including history, physical exam and plan: Yes Notes (Text): 04/08/17 10:14 I have seen and examined patient with GI fellow. No acute events overnight, he is seen sitting in bed eating breakfast, appears quite comfortable. He continues to endorse mild LLQ abdominal pain, though much improved compared to prior. He denies nausea, vomiting, fever/chills. He had a scant bowel movement this morning. Abdominal pain Acute complicated descending colon diverticulitis with associated perforation and associated colonic stricture - Continue with antibiotic therapy - Follow up blood culture results - Diet has been advanced by medical team today, monitor patient clinical response - Follow up surgical recommendations - Patient would need elective outpatient colonoscopy following resolution of acute symptoms. Colonic stricture malignant vs inflammatory from recurrent diverticulitis. No further planned GI interventions, will sign off case. Please reconsult as necessary, thank you.
[2017-04-08 08:05] VITALS: O2SAT 97
--- NOTE | 2017-04-08 08:17 | CP.PCM.PN ---
Subjective - Date & Time of Evaluation Date of Evaluation: 04/08/17 Time of Evaluation: 07:00 - Subjective Subjective: Surgical Progress Note: Patient was seen and examined at bedside in the AM. Patient denies nausea, vomiting, fever, shortness of breath, chest pain or constipation. Patient is passing flatus and voiding. Patient states he is hungry and would like more food than just liquids. Objective - Vital Signs/Intake and Output Vital Signs (last 24 hours): Temp Pulse Resp BP Pulse Ox 97.8 F 61 20 124/64 97 04/08/17 08:03 04/08/17 08:03 04/08/17 08:03 04/08/17 08:03 04/08/17 08:03 Intake and Output: 04/08/17 04/08/17 06:59 18:59 Intake Total 1300 Balance 1300 - Medications Medications: Current Medications Famotidine (Pepcid) 20 mg IVP Q12 [facility] Last Admin: 04/07/17 21:53 Dose: 20 mg Hydromorphone HCl (Dilaudid) 0.5 mg IVP Q4H PRN PRN Reason: Pain, moderate (4-7) Last Admin: 04/08/17 05:56 Dose: 0.5 mg Ciprofloxacin (Cipro 200mg/100ml D5w) 100 mls @ 67 mls/hr IVPB Q12H [facility] Last Admin: 04/08/17 04:09 Dose: 67 mls/hr Metronidazole 250 mg/ (Miscellaneous) 50 mls @ 100 mls/hr IVPB Q8H [facility] Last Admin: 04/08/17 01:06 Dose: 100 mls/hr - Labs Labs: 04/07/17 11:23 04/06/17 00:48 PT 11.9 SECONDS (9.7-12.2) 04/06/17 06:07 INR 1.1 04/06/17 06:07 APTT 31 SECONDS (21-34) 04/06/17 06:07 - Constitutional Appears: No Acute Distress - Head Exam Head Exam: ATRAUMATIC, NORMAL INSPECTION - Eye Exam Eye Exam: Normal appearance - ENT Exam ENT Exam: Mucous Membranes Moist - Respiratory Exam Respiratory Exam: NORMAL BREATHING PATTERN - Cardiovascular Exam Cardiovascular Exam: +S1, +S2 - GI/Abdominal Exam GI & Abdominal Exam: Soft, Normal Bowel Sounds - Extremities Exam Extremities Exam: Normal Inspection - Neurological Exam Neurological Exam: Alert, Awake, Oriented x3 - Psychiatric Exam Psychiatric exam: Normal Affect, Normal Mood - Skin Skin Exam: Normal Color, Warm Assessment and Plan - Assessment and Plan (Free Text) Assessment: This is a 67M with LLQ pain , sigmoid stricture: Improving Afebrile. No leukocytosis Advanced diet to soft Patient cleared for discharged from a surgical standpoint GI rec: Out pt colonoscopy Patient to follow up with Dr. Arellano after he has the colonoscopy Brooke Castro PGY-1
[2017-04-08 12:25] LABS: BASO # 0.1 K/uL (0.0-0.2); EOS # 0.1 K/uL (0.0-0.7); EOS % 1.3 % (0.0-4.0); HEMOGLOBIN 12.3 g/dL (12.0-18.0); LYMPH # 2.4 K/uL (1.0-4.3); LYMPH % 24.9 % (20.0-40.0); MEAN CELL VOLUME 86.8 fL (80.0-94.0); MEAN CORPUSCULAR HEMOGLOBIN 28.8 pg (27.0-31.0); MEAN CORPUSCULAR HGB CONC 33.2 g/dL (33.0-37.0); MEAN PLATELET VOLUME 8.5 fL (7.2-11.7); MONO # 0.9 K/uL (0.0-0.8); MONO % 9.8 % (0.0-10.0); RBC 4.28 Mil/uL (4.40-5.90); WHITE BLOOD COUNT 9.6 K/uL (4.8-10.8)
[2017-04-08 13:07] LABS: ALB/GLOB RATIO 1.2 (1.0-2.1); ALBUMIN 3.8 g/dL (3.5-5.0); ALT/SGPT 32 U/L (21-72); AST/SGOT 30 U/L (17-59); BLOOD UREA NITROGEN 10 mg/dL (9-20); CALCIUM 8.4 mg/dl (8.6-10.4); GFR AFRICAN-AMERICAN > 60; GFR NON-AFRICAN AMERICAN > 60
--- NOTE | 2017-04-08 16:01 | CP.PCM.PN ---
Subjective - Date & Time of Evaluation Date of Evaluation: 04/08/17 Time of Evaluation: 15:56 - Subjective Subjective: PT SEEN AND EXAMINED TODAY, DENIES ANY ABDOMINAL PAIN, NAUSEA, VOMITING, RESP EASY AND UNLABORED. NAD Objective - Vital Signs/Intake and Output Vital Signs (last 24 hours): Temp Pulse Resp BP Pulse Ox 97.8 F 61 20 124/64 97 04/08/17 08:03 04/08/17 08:03 04/08/17 08:03 04/08/17 08:03 04/08/17 08:03 Intake and Output: 04/08/17 04/08/17 06:59 18:59 Intake Total 1300 780 Balance 1300 780 - Medications Medications: Current Medications Famotidine (Pepcid) 20 mg IVP Q12 [facility] Last Admin: 04/08/17 09:26 Dose: 20 mg Hydromorphone HCl (Dilaudid) 0.5 mg IVP Q4H PRN PRN Reason: Pain, moderate (4-7) Last Admin: 04/08/17 05:56 Dose: 0.5 mg Ciprofloxacin (Cipro 200mg/100ml D5w) 100 mls @ 67 mls/hr IVPB Q12H [facility] Last Admin: 04/08/17 04:09 Dose: 67 mls/hr Metronidazole 250 mg/ (Miscellaneous) 50 mls @ 100 mls/hr IVPB Q8H [facility] Last Admin: 04/08/17 08:34 Dose: 100 mls/hr - Labs Labs: 04/08/17 12:20 04/08/17 12:20 PT 11.9 SECONDS (9.7-12.2) 04/06/17 06:07 INR 1.1 04/06/17 06:07 APTT 31 SECONDS (21-34) 04/06/17 06:07 Assessment and Plan - Assessment and Plan (Free Text) Plan: 67 Y/O MALE WITH LLQ PAIN, SIGMOID STRICTURE- IMPROVING PT SEEN BY SURGERY AND GI- CLEARED FOR DISCHARGE TOLERATED DIET, REPORTS 3 BM, PASSING GAS, DENIES ANY ABDOMINAL PAIN, N/V SUGGESTED OUTPT COLONSCOPY F/U WITH DR ARSHAD AFTER COLONOSCOPY RX FOR CIPRO, FLAGYL PER SURGERY
[2017-04-08 16:50] VITALS: BP 128/70; PULSE 64; TEMP 98
== END 2017-04-08 18:35 | disposition home or self-care (01) | DRG 392 ==
LOC: C.ER 23:09 → C.9E 04-06 07:33 → C.3T 04-06 14:55
PROVIDERS: ADMIT Internal Medicine Nephrology; ATTEND Internal Medicine Nephrology
DX: K57.20 Diverticulitis of large intestine with perforation and abscess without bleeding (principal); K56.699 Other intestinal obstruction unspecified as to partial versus complete obstruction; F17.210 Nicotine dependence, cigarettes, uncomplicated

== ENCOUNTER 2017-08-13 19:51 | Emergency (ER) | payer MEDICARE ==
[2017-08-13 20:22] VITALS: TEMP 98.3
[2017-08-13 21:46] LABS: URINE BILIRUBIN NEGATIVE (NEGATIVE); URINE BLOOD NEGATIVE (NEGATIVE); URINE CLARITY Clear (Clear); URINE COLOR Straw (YELLOW); URINE GLUCOSE (UA) NORMAL (Normal); URINE LEUKOCYTE ESTERASE NEG Leu/uL (Negative); URINE PROTEIN NEGATIVE (NEGATIVE); URINE UROBILINOGEN NORMAL mg/dL (0.2-1.0)
--- NOTE | 2017-08-13 22:15 | C.PDOC ---
History Of Present Illness 67 year old male presents to the ER with a complaint of urinary hesitancy. Patient states it takes him some time to start urinating; he notes he has had difficulty urinating for the past few months but now feels some discomfort to the mid suprapubic area. Denies nausea, vomiting, back pain, hematuria, or dysuria. Time Seen by Provider: 08/13/17 20:40 Chief Complaint (Nursing): Male Genitourinary History Per: Patient History/Exam Limitations: no limitations Onset/Duration Of Symptoms: Days Current Symptoms Are (Timing): Still Present Quality Of Discomfort: Unable To Describe Associated Symptoms: Urinary Symptoms (Hesitancy, no hematuria or dysuria). denies: Nausea, Vomiting, Back Pain Alleviating Factors: None Recent travel outside of the [place]: No Past Medical History Reviewed: Historical Data, Nursing Documentation, Vital Signs Vital Signs: Last Vital Signs Temp 98.3 F 08/13/17 20:18 Pulse 80 08/13/17 22:24 Resp 14 08/13/17 22:24 BP 130/80 08/13/17 22:24 Pulse Ox 99 08/13/17 22:24 Family History: States: Unknown Family Hx - Social History Hx Tobacco Use: Yes (heavy smoker) Hx Alcohol Use: No Hx Substance Use: No - Immunization History Hx Tetanus Toxoid Vaccination: No Hx Influenza Vaccination: No Hx Pneumococcal Vaccination: No Review Of Systems Constitutional: Negative for: Fever, Chills Gastrointestinal: Positive for: Abdominal Pain (Mid suprapubic discomfort). Negative for: Nausea, Vomiting Genitourinary: Positive for: Other (Hesitancy). Negative for: Dysuria, Hematuria Musculoskeletal: Negative for: Back Pain Physical Exam - Physical Exam Appears: Non-toxic Skin: Normal Color, Warm, Dry Head: Atraumatic, Normacephalic Eye(s): bilateral: Normal Inspection Gastrointestinal/Abdominal: Soft, No Tenderness Back: No CVA Tenderness Neurological/Psych: Oriented x3, Normal Speech ED Course And Treatment O2 Sat by Pulse Oximetry: 98 (Room air) Pulse Ox Interpretation: Normal Progress Note: Urinalysis ordered, results were negative. Patient is resting comfortably in the ER in no acute distress, vitals are stable, will discharge home with instructions to follow up with urologist for return if symptoms worsen. Disposition Counseled Patient/Family Regarding: Diagnosis, Need For Followup, Rx Given - Disposition Referrals: Issa Grant Jr., MD [Staff Provider] - Disposition: HOME/ ROUTINE Disposition Time: 22:15 Condition: STABLE Additional Instructions: Please follow up with urologist for further evaluation Return to ER if symptoms get worse Forms: [facility] (Turkmen), General Discharge Instructions - Clinical Impression Clinical Impression: Urinary hesitancy - PA / SERVICE LOSS CONTROL CONSULTANT / Resident Statement MD/DO has reviewed & agrees with the documentation as recorded. - Scribe Statement The provider has reviewed the documentation as recorded by the Scribdunia Ch All medical record entries made by the Sujata were at my direction and personally dictated by me. I have reviewed the chart and agree that the record accurately reflects my personal performance of the history, physical exam, medical decision making, and the department course for this patient. I have also personally directed, reviewed, and agree with the discharge instructions and disposition.
[2017-08-13 22:25] VITALS: BP 130/80; PULSE 80; RESP 14
[2017-08-14 00:39] VITALS: O2SAT 98
== END 2017-08-13 22:25 | disposition home or self-care (01) ==
LOC: C.ER 19:51
DX: R39.11 Hesitancy of micturition (principal); F17.200 Nicotine dependence, unspecified, uncomplicated

== ENCOUNTER 2017-09-14 13:25 | Emergency (ER) | payer OTHER ==
[2017-09-14] MEDS ORDERED: Iohexol 240 (50 ml) PO STA (14:18)
[2017-09-14] MEDS ORDERED: Sodium Chloride 0.9% 1,000 ML IV ONE (14:18)
[2017-09-14 14:27] LABS: BASO # 0.1 K/uL (0.0-0.2); BASO % 0.8 % (0.0-2.0); EOS # 0.2 K/uL (0.0-0.7); EOS % 1.6 % (0.0-4.0); HEMOGLOBIN 12.3 g/dL (12.0-18.0); LYMPH # 3.3 K/uL (1.0-4.3); LYMPH % 24.8 % (20.0-40.0); MEAN CELL VOLUME 86.1 fL (80.0-94.0); MEAN CORPUSCULAR HEMOGLOBIN 29.4 pg (27.0-31.0); MEAN CORPUSCULAR HGB CONC 34.1 g/dL (33.0-37.0); MONO # 0.9 K/uL (0.0-0.8); MONO % 6.6 % (0.0-10.0); NEUT # 8.7 K/uL (1.8-7.0); NEUT % 66.2 % (50.0-75.0); NRBC % 0.1 % (0.0-2.0); RBC 4.2 Mil/uL (4.40-5.90); RED CELL DISTRIBUTION WIDTH 15.7 % (11.5-14.5); WHITE BLOOD COUNT 13.1 K/uL (4.8-10.8)
[2017-09-14] MEDS ORDERED: Sodium Chloride 0.9% 1,000 ML ONE (14:27)
[2017-09-14] MEDS ORDERED: Iohexol 240 (50 ml) ONE (14:27)
--- NOTE | 2017-09-14 14:28 | C.PDOC ---
History Of Present Illness 67 y/o male with history of perforates viscus presents to ED with c/o LLQ abdominal pain for 1 week associated with dysuria. Patient reports pain exacerbated this morning prompting visit and admits to dark stool. Patient denies fever, chills, testicular pain, nausea, vomiting or any other complaints at this time. Time Seen by Provider: 09/14/17 14:10 Chief Complaint (Nursing): Abdominal Pain History Per: Patient History/Exam Limitations: no limitations Onset/Duration Of Symptoms: Days Current Symptoms Are (Timing): Still Present Location Of Pain/Discomfort: LLQ Radiation Of Pain To:: None Quality Of Discomfort: "Pain" Past Medical History Reviewed: Historical Data, Nursing Documentation, Vital Signs Vital Signs: Last Vital Signs Temp 98.1 F 09/14/17 16:06 Pulse 59 L 09/14/17 16:06 Resp 18 09/14/17 16:06 BP 113/61 09/14/17 16:06 Pulse Ox 97 09/14/17 16:06 - Medical History PMH: No Chronic Diseases Surgical History: No Surg Hx Family History: States: No Known Family Hx - Social History Hx Tobacco Use: Yes (heavy smoker) Hx Alcohol Use: No Hx Substance Use: No - Immunization History Hx Tetanus Toxoid Vaccination: No Hx Influenza Vaccination: No Hx Pneumococcal Vaccination: No Review Of Systems Except As Marked, All Systems Reviewed And Found Negative. Gastrointestinal: Positive for: Nausea, Abdominal Pain Genitourinary: Positive for: Dysuria Physical Exam - Physical Exam Appears: Non-toxic, No Acute Distress Skin: Warm, Dry, No Rash Head: Atraumatic, Normacephalic Eye(s): bilateral: Normal Inspection Oral Mucosa: Moist Neck: Normal ROM, Supple Cardiovascular: Rhythm Regular Respiratory: Normal Breath Sounds, No Rales, No Rhonchi, No Wheezing Gastrointestinal/Abdominal: Bowel Sounds, Soft, Tenderness (LLQ), No Guarding, No Rebound Back: No CVA Tenderness, No Paraspinal Tenderness Neurological/Psych: Oriented x3, Normal Speech ED Course And Treatment - Laboratory Results Result Diagrams: 09/14/17 14:24 09/14/17 14:24 ECG: Interpreted By Me, Viewed By Me ECG Rhythm: Sinus Rhythm Interpretation Of ECG: PAC, Normal Intervals. Normal Access Rate From EC (BPM) O2 Sat by Pulse Oximetry: 97 (RA) Pulse Ox Interpretation: Normal Medical Decision Making Medical Decision Making: Assessment: Abdominal pain, Dysuria Plan: CT abd/pelvis,UA, EKG ordered. Pepcid, Iohexol, Zofran, IV fluids, Toradol administered Patient resting comfortably, states improvement. Patient do not wish to stay in hospital. Will discharge home with antibiotics and advised immediate follow up with gi doctor and to return to ER if symptoms worsens or progress Disposition Counseled Patient/Family Regarding: Studies Performed, Diagnosis, Need For Followup, Rx Given - Disposition Referrals: Florencio London MD [Staff Provider] - Disposition: HOME/ ROUTINE Disposition Time: 18:03 Condition: IMPROVED Additional Instructions: follow up with gi tomorrow call to in AM for appointment take medications as prescribed return to ER if symptoms worsens or progress you do not wish to stay in hospital and would like to attempt outpatient treatment for your symptoms. Prescriptions: Ciprofloxacin HCl [Cipro] 500 mg PO BID #20 tab Famotidine [Pepcid] 20 mg PO BID #20 tab Metronidazole [Flagyl] 500 mg PO BID #20 tablet Ondansetron ODT [Zofran ODT] 4 mg PO TID PRN #12 odt PRN Reason: Nausea/Vomiting traMADol [Ultram] 50 mg PO TID PRN #8 tab PRN Reason: Pain, Moderate (4-7) Instructions: Diverticulitis (DC) Forms: [facility] (Slovenian), General Discharge Instructions, Work Excuse - Clinical Impression Clinical Impression: Diverticulitis - Scribe Statement The provider has reviewed the documentation as recorded by the Sujata Thornton All medical record entries made by the Sujata were at my direction and personally dictated by me. I have reviewed the chart and agree that the record accurately reflects my personal performance of the history, physical exam, medical decision making, and the department course for this patient. I have also personally directed, reviewed, and agree with the discharge instructions and disposition.
[2017-09-14 14:44] LABS: ALB/GLOB RATIO 1.4 (1.0-2.1); ALBUMIN 4.3 g/dL (3.5-5.0); CALCIUM 9.2 mg/dl (8.6-10.4); GFR AFRICAN-AMERICAN > 60; GFR NON-AFRICAN AMERICAN > 60; LIPASE 54 U/L (23-300)
[2017-09-14 14:47] LABS: ALT/SGPT 54 U/L (21-72); AST/SGOT 50 U/L (17-59); BLOOD UREA NITROGEN 20 mg/dL (9-20)
[2017-09-14] MEDS ORDERED: Iodixanol 320 MG/ML 100 ML BOTTLE IV ONE (15:18)
[2017-09-14 15:45] LABS: SQUAMOUS EPITHIAL < 1 /hpf (0-5); URINE BACTERIA RARE (<OCC); URINE BILIRUBIN NEGATIVE (NEGATIVE); URINE BLOOD NEGATIVE (NEGATIVE); URINE CLARITY Hazy (Clear); URINE COLOR Yellow (YELLOW); URINE GLUCOSE (UA) NORMAL (Normal); URINE LEUKOCYTE ESTERASE NEG Leu/uL (Negative); URINE PROTEIN 1+ mg/dL (NEGATIVE)
--- NOTE | 2017-09-14 16:59 | CT ---
PROCEDURE: CT Abdomen and Pelvis with contrast HISTORY: abd pain COMPARISON: Abdomen and pelvis CT with contrast 04/15/2017. TECHNIQUE: Contrast dose: Visipaque 320, 100 cc Radiation dose: Total exam DLP = 472.26 mGy-cm. This CT exam was performed using one or more of the following dose reduction techniques: Automated exposure control, adjustment of the mA and/or kV according to patient size, and/or use of iterative reconstruction technique. FINDINGS: LOWER THORAX: Unremarkable. LIVER: Prior fatty infiltration not appreciated. No gross lesion or ductal dilatation. GALLBLADDER AND BILE DUCTS: Unremarkable. PANCREAS: Unremarkable. No gross lesion or ductal dilatation. SPLEEN: Unremarkable. ADRENALS: Unremarkable. No mass. KIDNEYS AND URETERS: Unremarkable. No hydronephrosis. No solid mass. VASCULATURE: Unremarkable. No aortic aneurysm. BOWEL: Stomach is collapsed and not well evaluated. Evaluation the bowel reveals no obstruction and moderate fecal loading is seen throughout the majority colon. Left colonic diverticular changes are appreciated concentrated primarily at the sigmoid colon. There is a markedly thickened segment of the mid sigmoid colon with local pericolic reaction in a pattern suspicious for acute subacute diverticulitis without abscess or free air. Underlying neoplasm not excluded. The sigmoid stricture remains questioned. Follow-up colonoscopy is recommended following therapy. APPENDIX: Normal appendix. PERITONEUM: Local pericolic reaction at the sigmoid colon is the only significant peritoneal finding at this time. No ascites or free air. LYMPH NODES: Unremarkable. No enlarged lymph nodes. BLADDER: The urinary bladder is poorly evaluated due to decompression. Limited sympathetic mural thickening not excluded though lack of asymmetry in the mural pattern of the urinary bladder suggests no influence by apparent sigmoid diverticulitis. REPRODUCTIVE: Reiterated enlarged prostate gland. BONES: No acute fracture. OTHER FINDINGS: None. IMPRESSION: 1. Acute subacute sigmoid diverticulitis affecting mid sigmoid colon without abscess or free air. Marked mural thickening is encountered in this segment and an underlying lesion is not excluded. Follow-up colonoscopy is recommended following therapy. No abscess or free intraperitoneal gas at this time. 2. The remainder of the examination appears nonacute.
[2017-09-14] MEDS ORDERED: Ciprofloxacin 400mg/200ml D5W 400 MG/200 ML BAG IVPB STA (17:24)
[2017-09-14] MEDS ORDERED: metroNIDAZOLE IV 500 mg/100 ml 500 MG/100 ML BAG IVPB STA (17:25)
[2017-09-14] MEDS ORDERED: metroNIDAZOLE IV 500 mg/100 ml 500 MG/100 ML BAG ONE (17:30)
[2017-09-14] MEDS ORDERED: Ciprofloxacin 400mg/200ml D5W 400 MG/200 ML BAG IVPB ONE (18:44)
[2017-09-14 19:26] VITALS: BP 114/51; PULSE 59; RESP 16; TEMP 98.4; O2SAT 98
--- NOTE | 2017-09-15 23:04 | CARD ---
APPROVED REPORT EKG Measurement Heart [id number] <Conclusion> Sinus rhythm with premature atrial complexes Otherwise normal ECG
== END 2017-09-14 20:11 | disposition home or self-care (01) ==
LOC: C.ER 13:25
DX: K57.32 Diverticulitis of large intestine without perforation or abscess without bleeding (principal); F17.200 Nicotine dependence, unspecified, uncomplicated
CPT/HCPCS: 74177; 80053; 81001; 83690; 85025; 93005; 96361; 96365; 96375; 99285; J0744; J1885; J2405; J7030; Q9966; Q9967

== ENCOUNTER 2017-09-17 06:50 | Inpatient (IN) | payer MEDICARE, OTHER ==
[2017-09-17 08:13] LABS: BASO # 0.1 K/uL (0.0-0.2); BASO % 1.1 % (0.0-2.0); EOS # 0.1 K/uL (0.0-0.7); EOS % 1.4 % (0.0-4.0); HEMOGLOBIN 11.7 g/dL (12.0-18.0); LYMPH # 2.1 K/uL (1.0-4.3); LYMPH % 20.6 % (20.0-40.0); MEAN CELL VOLUME 86.2 fL (80.0-94.0); MEAN CORPUSCULAR HEMOGLOBIN 29.6 pg (27.0-31.0); MEAN CORPUSCULAR HGB CONC 34.4 g/dL (33.0-37.0); MEAN PLATELET VOLUME 7.9 fL (7.2-11.7); MONO # 0.7 K/uL (0.0-0.8); MONO % 6.6 % (0.0-10.0); NEUT # 7.2 K/uL (1.8-7.0); NEUT % 70.3 % (50.0-75.0); RBC 3.95 Mil/uL (4.40-5.90); RED CELL DISTRIBUTION WIDTH 15.6 % (11.5-14.5); WHITE BLOOD COUNT 10.3 K/uL (4.8-10.8)
[2017-09-17 08:15] LABS: URINE BACTERIA RARE (<OCC); URINE BILIRUBIN NEGATIVE (NEGATIVE); URINE BLOOD NEGATIVE (NEGATIVE); URINE CLARITY Clear (Clear); URINE COLOR Yellow (YELLOW); URINE GLUCOSE (UA) NORMAL (Normal); URINE LEUKOCYTE ESTERASE TRACE Leu/uL (Negative); URINE PROTEIN NEGATIVE (NEGATIVE); URINE UROBILINOGEN NORMAL mg/dL (0.2-1.0)
[2017-09-17 08:29] LABS: ALBUMIN 3.9 g/dL (3.5-5.0); BLOOD UREA NITROGEN 19 mg/dL (9-20); GFR AFRICAN-AMERICAN > 60; GFR NON-AFRICAN AMERICAN > 60
[2017-09-17 08:30] LABS: ALB/GLOB RATIO 1.4 (1.0-2.1); ALT/SGPT 34 U/L (21-72); AST/SGOT 32 U/L (17-59); LIPASE 47 U/L (23-300)
--- NOTE | 2017-09-17 08:33 | C.PDOC ---
History Of Present Illness 67 yo male with PMH diverticulitis with perforation c/o LLQ abdominal pain x 4 days. Pt notes that pain is intermittent, sharp when it comes on and then resolves. Vomiting yesterday, none today. No BM in 4 days. Also reports urinary hesitancy for months. Has not f/u with urology or GI as instructed. No h/o abdominal surgery. Pt notes he has been complaint with the medication prescribed. Time Seen by Provider: 09/17/17 07:35 Chief Complaint (Nursing): Abdominal Pain History Per: Patient History/Exam Limitations: no limitations Onset/Duration Of Symptoms: Days Current Symptoms Are (Timing): Still Present Context: Food Location Of Pain/Discomfort: LLQ Quality Of Discomfort: Sharp Associated Symptoms: Nausea, Vomiting, Constipation Past Medical History Vital Signs: Last Vital Signs Temp 97.5 F L 09/17/17 10:15 Pulse 49 L 09/17/17 10:15 Resp 20 09/17/17 10:15 BP 131/74 09/17/17 10:15 Pulse Ox 98 09/17/17 10:15 Other Surgeries: Finger Family History: States: Other Other Family History: cancer - Social History Hx Tobacco Use: Yes (heavy smoker) Hx Alcohol Use: No Hx Substance Use: No - Immunization History Hx Tetanus Toxoid Vaccination: No Hx Influenza Vaccination: No Hx Pneumococcal Vaccination: No Review Of Systems Except As Marked, All Systems Reviewed And Found Negative. Gastrointestinal: Positive for: Nausea, Vomiting, Abdominal Pain Physical Exam - Physical Exam Appears: Well, Non-toxic, No Acute Distress Skin: Normal Color, Warm, Dry Head: Atraumatic, Normacephalic Eye(s): bilateral: Normal Inspection, EOMI Nose: Normal Neck: Normal, Normal ROM, Supple Chest: Symmetrical Cardiovascular: Rhythm Regular Respiratory: Normal Breath Sounds Gastrointestinal/Abdominal: Tenderness (LLQ tenderness) Back: Normal Inspection Extremity: Normal ROM Neurological/Psych: Oriented x3, Normal Speech ED Course And Treatment - Laboratory Results Result Diagrams: 09/17/17 08:04 09/17/17 08:04 O2 Sat by Pulse Oximetry: 97 Progress Note: CT abd/pelvis from 09/14/17: 1. Acute subacute sigmoid diverticulitis affecting mid sigmoid colon without abscess or free air. Marked mural thickening is encountered in this segment and an underlying lesion is not excluded. Follow-up colonoscopy is recommended following therapy. No abscess or free intraperitoneal gas at this time. CAse discussed with Dr Colunga, agreed upon plan and admission. Case discussed with Dr Mac. agree dupon plan and admission. Disposition - Disposition Disposition: HOSPITALIZED Disposition Time: 10:13 Condition: STABLE - Clinical Impression Clinical Impression: Diverticulitis, Constipation, Urinary hesitancy
[2017-09-17] MEDS ORDERED: Piperacillin/Tazobact 3.375 gm 100 ML IV STA (08:46)
[2017-09-17] MEDS ORDERED: Piperacillin/Tazobact 3.375 gm 100 ML IVPB ONE (09:02)
--- NOTE | 2017-09-17 09:30 | CP.PCM.HP ---
<Dank Russo - Last Filed: 09/17/17 09:50> History of Present Illness - History of Present Illness History of Present Illness: PGY-[address] Mac. Mr Roche is a 67 year old male with a PMHx of diverticulitis with associated perforation and associated colonic stricture diagnosed in 03/2017 (he denies other PMHx due to not having seen a doctor). In 03/2017 he was discharged with improvement in sx and was told to follow-up with GI for colonoscopy but patient never did. Today he presents with LLQ abdominal pain intermittent and worsening which started in 12/2015. In addition to the 03/2017, he had a prior admission but left AMA. He describes the pain as sharp and deep. Associated symptoms include nausea. He associates the pain with food intake. He denies fevers or chills. Additionally he complains of being constipated for 5 days as well as urinary hesitancy. PMHx: diverticulitis with associated perforation and associated colonic stricture diagnosed in 03/2017 PSHx: 2nd and 3rd digit finger surgery on left hand All: denies Home meds: none FamHx: Father with lung cancer, Mother had uterine cancer SocialHx: 50 pack year smoking hx - active smoker; former alcohol abuse - currently drinks occasionally on weekends - 2-4 drinks per week; former homelessness - currently lives with roommate in [facility]; works in construction Present on Admission - Present on Admission Any Indicators Present on Admission: No Review of Systems - Constitutional Constitutional: absent: Chills, Fatigue, Fever, Weight Loss, Weakness - EENT Eyes: absent: Blurred Vision - Cardiovascular Cardiovascular: absent: Chest Pain - Respiratory Respiratory: absent: Dyspnea - Gastrointestinal Gastrointestinal: Abdominal Pain, Constipation, Nausea. absent: Belching, Bloating, Diarrhea, Hematochezia, Vomiting - Genitourinary Genitourinary: Urinary Hesitance - Integumentary Integumentary: absent: Bleeding Lesions Past Patient History - Infectious Disease Hx of Infectious Diseases: None - Past Social History Smoking Status: Heavy Smoker > 10 Cigarettes Daily - NEUROLOGICAL Hx Vertigo: Yes - MUSCULOSKELETAL/RHEUMATOLOGICAL Hx Falls: No Other/Comment: broken foot R,no surgery - PSYCHIATRIC Hx Substance Use: No - SURGICAL HISTORY Hx Surgeries: Yes Hx Orthopedic Surgery: Yes - ANESTHESIA Hx Anesthesia: Yes Hx Anesthesia Reactions: No Meds Allergies/Adverse Reactions: Allergies Allergy/AdvReac Type Severity Reaction Status Date / Time No Known Allergies Allergy Verified 09/17/17 07:08 Physical Exam - Constitutional Appears: Well, Unkempt - Head Exam Head Exam: ATRAUMATIC, NORMAL INSPECTION - Eye Exam Eye Exam: EOMI Pupil Exam: PERRL - ENT Exam ENT Exam: Mucous Membranes Dry - Neck Exam Neck exam: Positive for: Full Rom - Respiratory Exam Respiratory Exam: Clear to Auscultation Bilateral, NORMAL BREATHING PATTERN. absent: Rales, Rhonchi, Wheezes - Cardiovascular Exam Cardiovascular Exam: REGULAR RHYTHM, +S1, +S2. absent: Bradycardia, Tachycardia , JVD, Systolic Murmur - GI/Abdominal Exam GI & Abdominal Exam: Normal Bowel Sounds, Soft, Tenderness. absent: Distended, Guarding, Rebound Additional comments: LLQ tenderness to palpation - Rectal Exam Rectal Exam: Deferred - Extremities Exam Extremities exam: Positive for: normal inspection. Negative for: calf tenderness - Back Exam Back exam: NORMAL INSPECTION. absent: CVA tenderness (L), CVA tenderness (R) - Neurological Exam Neurological exam: Alert, CN II-XII Intact, Oriented x3 - Psychiatric Exam Psychiatric exam: Normal Affect, Normal Mood - Skin Skin Exam: Intact, Normal Color, Warm Additional comments: Asymmetrical 1 inch brown mole on left paraspinal area on back at T8 Results - Vital Signs Recent Vital Signs: Last Vital Signs Temp 98 F 09/17/17 07:09 Pulse 68 09/17/17 07:09 Resp 18 09/17/17 07:09 BP 136/72 09/17/17 07:09 Pulse Ox 97 09/17/17 08:33 - Labs Result Diagrams: 09/17/17 08:04 09/17/17 08:04 Labs: Laboratory Results - last 24 hr 09/17/17 09/17/17 09/17/17 08:04 08:04 08:04 WBC 10.3 RBC 3.95 L Hgb 11.7 L Hct 34.0 L MCV 86.2 MCH 29.6 MCHC 34.4 RDW 15.6 H Plt Count 391 MPV 7.9 Neut % (Auto) 70.3 Lymph % (Auto) 20.6 [place] % (Auto) 6.6 Eos % (Auto) 1.4 Baso % (Auto) 1.1 Neut # (Auto) 7.2 H Lymph # (Auto) 2.1 [place] # (Auto) 0.7 Eos # (Auto) 0.1 Baso # (Auto) 0.1 Sodium 137 Potassium 4.3 Chloride 101 Carbon Dioxide 27 Anion Gap 13 BUN 19 Creatinine 1.0 Est GFR ( Amer) > 60 Est GFR (Non-Af Amer) > 60 Random Glucose 106 Calcium 9.0 Total Bilirubin 0.4 AST 32 ALT 34 Alkaline Phosphatase 65 Total Protein 6.8 Albumin 3.9 Globulin 2.9 Albumin/Globulin Ratio 1.4 Lipase 47 Urine Color Yellow Urine Clarity Clear Urine pH 5.0 Ur Specific [place] 1.016 Urine Protein Negative Urine Glucose (UA) Normal Urine Ketones Negative Urine Blood Negative Urine Nitrate Negative Urine Bilirubin Negative Urine Urobilinogen Normal Ur Leukocyte Esterase Trace Urine WBC (Auto) < 1 Urine RBC (Auto) 1 Urine Bacteria Rare Assessment & Plan (1) Acute diverticulitis Assessment and Plan: Recurrent diverticulitis Admitted in 03/2017 and at that time was diagnosed with acute complicated descending colon diverticulitis with associated perforation and associated colonic stricture. Plan was to do outpatient colonoscopy but patient never followed-up with GI, Dr London. GI consult, Dr Vieira - will follow his recs NPO except meds NS @ 125ml/hr Imaging: CT abd/pelvis w/ contrast 09/14/2017: * 1. Acute subacute sigmoid diverticulitis affecting mid sigmoid colon without abscess or free air. Marked mural thickening is encountered in this segment and an underlying lesion is not excluded. Follow-up colonoscopy is recommended following therapy. No abscess or free intraperitoneal gas at this time. Meds: Cipro 400mg IVPB Q12H Flagyl 500mg IVPB Q8H Morphine 2mg IVP Q4H PRN for pain Zofran 4mg IVP Q6H PRN for n/v Status: Acute Priority: High (2) Urinary hesitancy Assessment and Plan: Possibly due to BPH CT abd/pelvis w/ contrast reiterated enlarged prostate gland Flomax 0.4mg PO QD Status: Chronic Priority: Medium (3) Constipation Assessment and Plan: Colace 100mg PO given in ED Will give miralax 17g PO tonight Monitor Status: Acute Priority: High (4) Smoking hx Assessment and Plan: Active smoker - 1 pack per day for past 50 years Nicotine patch TD 14mg/24hr Status: Chronic Priority: High (5) Prophylactic measure Assessment and Plan: Lovenox 40mg SC QD SCDs GI prophylaxis not indicated Status: Acute Priority: Low <Alexandro Mac - Last Filed: 09/18/17 19:34> Results - Vital Signs Recent Vital Signs: Last Vital Signs Temp 98.3 F 09/18/17 15:07 Pulse 69 09/18/17 15:07 Resp 20 09/18/17 15:07 BP 130/65 09/18/17 15:07 Pulse Ox 96 09/18/17 15:07 - Labs Result Diagrams: 09/18/17 06:41 09/18/17 06:41 Labs: Laboratory Results - last 24 hr 09/18/17 09/18/17 06:41 06:41 WBC 10.2 RBC 4.07 L Hgb 11.6 L Hct 35.0 MCV 86.2 MCH 28.5 MCHC 33.1 RDW 15.6 H Plt Count 402 H MPV 7.8 Neut % (Auto) 70.5 Lymph % (Auto) 19.6 L [place] % (Auto) 7.5 Eos % (Auto) 1.8 Baso % (Auto) 0.6 Neut # (Auto) 7.2 H Lymph # (Auto) 2.0 [place] # (Auto) 0.8 Eos # (Auto) 0.2 Baso # (Auto) 0.1 Sodium 139 Potassium 4.8 Chloride 106 Carbon Dioxide 23 Anion Gap 15 BUN 16 Creatinine 1.0 Est GFR ( Amer) > 60 Est GFR (Non-Af Amer) > 60 Random Glucose 87 Calcium 8.5 L Total Bilirubin 0.4 AST 34 ALT 31 Alkaline Phosphatase 64 Total Protein 6.1 L Albumin 3.6 Globulin 2.5 Albumin/Globulin Ratio 1.4 Attending/Attestation - Attestation I have personally seen and examined this patient.: Yes I have fully participated in the care of the patient.: Yes I have reviewed all pertinent clinical information: Yes Notes (Text): seen and examined by me. patient has mild to moderate lower abdominal pain.On examination his abdomen is soft,no guarding,no rigidity. Mild tenderness This is a 67 year old male with a PMHx of diverticulitis with associated perforation and associated colonic stricture diagnosed in 03/2017 (he denies other PMHx due to not having seen a doctor). In 03/2017 he was discharged with improvement in sx and was told to follow-up with GI for colonoscopy but patient never did. Plan discussed with the patient and resident. NPO,fluids and antibiotics GI evaluation,out patient colonoscopy and surgery follow up I agree with the resident's documentation of the assessment and the plan
[2017-09-17] MEDS ORDERED: Sodium Chloride 0.9% 1,000 ML IV SCH (09:45)
[2017-09-17] MEDS: Sodium Chloride 0.9% 1,000 ML IV SCH ×3 (10:00→21:23)
[2017-09-17] MEDS: Enoxaparin 40 mg Syringe SC SCH (11:00)
[2017-09-17] MEDS: Ciprofloxacin 400mg/200ml D5W 400 MG/200 ML BAG IVPB SCH ×2 (11:28→22:03)
--- NOTE | 2017-09-17 11:59 | RAD ---
PROCEDURE: Radiographs of the chest and abdomen (obstructive series) HISTORY: Abdominal pain COMPARISON: CT abdomen and pelvis from 09/14/2017. TECHNIQUE: AP radiograph of the chest, with upright and supine radiographs of the abdomen. FINDINGS: CHEST: Lungs: The lungs are well inflated and clear. Cardiovascular: Normal size heart. No pulmonary vascular congestion. Pleura: No pleural fluid. No pneumothorax. Other findings: None. ABDOMEN AND PELVIS: Bowel: There is moderate amount of stool in the ascending colon. There is contrast material in the left hemicolon and rectum. There are multiple colonic diverticula. The bowel gas pattern is nonspecific. Free air: None. Bones: Unremarkable. Other findings: None. IMPRESSION: Nonobstructive bowel-gas pattern. Colonic diverticulosis. Clear lungs.
[2017-09-17] MEDS: metroNIDAZOLE IV 500 mg/100 ml 500 MG/100 ML BAG IVPB SCH ×2 (14:28→21:25)
[2017-09-17] MEDS ORDERED: POLYETHYLENE GLYCOL 3350 17 GM/Dose PACKET PO ONE (18:00)
[2017-09-18] MEDS: metroNIDAZOLE IV 500 mg/100 ml 500 MG/100 ML BAG IVPB SCH ×3 (05:25→21:10)
[2017-09-18 06:54] LABS: BASO # 0.1 K/uL (0.0-0.2); BASO % 0.6 % (0.0-2.0); EOS # 0.2 K/uL (0.0-0.7); EOS % 1.8 % (0.0-4.0); HEMOGLOBIN 11.6 g/dL (12.0-18.0); LYMPH % 19.6 % (20.0-40.0); MEAN CELL VOLUME 86.2 fL (80.0-94.0); MEAN CORPUSCULAR HEMOGLOBIN 28.5 pg (27.0-31.0); MEAN CORPUSCULAR HGB CONC 33.1 g/dL (33.0-37.0); MEAN PLATELET VOLUME 7.8 fL (7.2-11.7); MONO # 0.8 K/uL (0.0-0.8); MONO % 7.5 % (0.0-10.0); NEUT # 7.2 K/uL (1.8-7.0); NEUT % 70.5 % (50.0-75.0); NRBC % 0.1 % (0.0-2.0); RBC 4.07 Mil/uL (4.40-5.90); RED CELL DISTRIBUTION WIDTH 15.6 % (11.5-14.5); WHITE BLOOD COUNT 10.2 K/uL (4.8-10.8)
[2017-09-18 07:05] LABS: ALB/GLOB RATIO 1.4 (1.0-2.1); ALBUMIN 3.6 g/dL (3.5-5.0); ALT/SGPT 31 U/L (21-72); AST/SGOT 34 U/L (17-59); BLOOD UREA NITROGEN 16 mg/dL (9-20); CALCIUM 8.5 mg/dl (8.6-10.4); GFR AFRICAN-AMERICAN > 60; GFR NON-AFRICAN AMERICAN > 60
[2017-09-18] MEDS: Enoxaparin 40 mg Syringe SC SCH (09:25)
[2017-09-18] MEDS: Sodium Chloride 0.9% 1,000 ML IV SCH ×3 (09:27→21:13)
[2017-09-18] MEDS: Ciprofloxacin 400mg/200ml D5W 400 MG/200 ML BAG IVPB SCH ×2 (09:35→22:14)
--- NOTE | 2017-09-18 13:04 | CP.PCM.PN ---
<Dank Russo - Last Filed: 09/18/17 13:02> Subjective - Date & Time of Evaluation Date of Evaluation: 09/18/17 Time of Evaluation: 13:02 - Subjective Subjective: PGY-[address] Mac. No acute events noted overnight. Patient's abdominal pain has much improved. Stated he felt better. Also had a BM. Denies discomfort. Denies fever. Has maintained NPO. Objective - Vital Signs/Intake and Output Vital Signs (last 24 hours): Temp Pulse Resp BP Pulse Ox 98.1 F 109 H 18 91/58 L 97 09/18/17 08:42 09/18/17 08:42 09/18/17 08:42 09/18/17 08:42 09/18/17 08:42 Intake and Output: 09/18/17 09/18/17 06:59 18:59 Intake Total 1600 Output Total 600 Balance 1000 - Medications Medications: Current Medications Enoxaparin Sodium (Lovenox) 40 mg SC DAILY [facility] Last Admin: 09/18/17 09:25 Dose: 40 mg Ciprofloxacin (Cipro 400mg/200ml Dsw) 400 mg in 200 mls @ 133 mls/hr IVPB Q12H [facility] PRN Reason: Protocol Last Admin: 09/18/17 09:35 Dose: 133 mls/hr Metronidazole (Flagyl) 500 mg in 100 mls @ 100 mls/hr IVPB Q8 [facility] PRN Reason: Protocol Last Admin: 09/18/17 05:25 Dose: 100 mls/hr Sodium Chloride (Sodium Chloride 0.9%) 1,000 mls @ 125 mls/hr IV .Q8H [facility] Last Admin: 09/18/17 09:27 Dose: 125 mls/hr Morphine Sulfate (Morphine) 2 mg IVP Q4H PRN PRN Reason: Pain, severe (8-10) Nicotine (Nicoderm Cq) 1 patch TD DAILY [facility] Last Admin: 09/18/17 09:25 Dose: 1 patch Ondansetron HCl (Zofran Inj) 4 mg IVP Q6 PRN PRN Reason: Nausea/Vomiting Pneumococcal Polyvalent Vaccine (Pneumovax 23 Vaccine) 0.5 ml IM .ONCE ONE Stop: 09/20/17 10:01 Tamsulosin HCl (Flomax) 0.4 mg PO DAILY [facility] Last Admin: 09/18/17 09:25 Dose: 0.4 mg - Labs Labs: 09/18/17 06:41 09/18/17 06:41 - Additional Findings Additional findings: - Constitutional Appears: Well, Unkempt - Head Exam Head Exam: ATRAUMATIC, NORMAL INSPECTION - Eye Exam Eye Exam: EOMI Pupil Exam: PERRL - ENT Exam ENT Exam: Mucous Membranes Dry - Neck Exam Neck exam: Positive for: Full Rom - Respiratory Exam Respiratory Exam: Clear to Auscultation Bilateral, NORMAL BREATHING PATTERN. absent: Rales, Rhonchi, Wheezes - Cardiovascular Exam Cardiovascular Exam: REGULAR RHYTHM, +S1, +S2. absent: Bradycardia, Tachycardia , JVD, Systolic Murmur - GI/Abdominal Exam GI & Abdominal Exam: Normal Bowel Sounds, Soft, Tenderness. absent: Distended, Guarding, Rebound Additional comments: LLQ tenderness to palpation - Rectal Exam Rectal Exam: Deferred - Extremities Exam Extremities exam: Positive for: normal inspection. Negative for: calf tenderness - Back Exam Back exam: NORMAL INSPECTION. absent: CVA tenderness (L), CVA tenderness (R) - Neurological Exam Neurological exam: Alert, CN II-XII Intact, Oriented x3 - Psychiatric Exam Psychiatric exam: Normal Affect, Normal Mood - Skin Skin Exam: Intact, Normal Color, Warm Additional comments: Asymmetrical 1 inch brown mole on left paraspinal area on back at T8 Assessment and Plan (1) Acute diverticulitis Status: Acute (2) Urinary hesitancy Status: Chronic (3) Constipation Status: Acute (4) Smoking hx Status: Chronic (5) Prophylactic measure Status: Acute - Assessment and Plan (Free Text) Assessment: (1) Acute diverticulitis Assessment and Plan: Recurrent diverticulitis Admitted in 03/2017 and at that time was diagnosed with acute complicated descending colon diverticulitis with associated perforation and associated colonic stricture. Plan was to do outpatient colonoscopy but patient never followed-up with GI, Dr London. GI consult, Dr Vieira - will follow his recs NPO except meds -> advanced to clear liquids NS @ 125ml/hr Imaging: CT abd/pelvis w/ contrast 09/14/2017: * 1. Acute subacute sigmoid diverticulitis affecting mid sigmoid colon without abscess or free air. Marked mural thickening is encountered in this segment and an underlying lesion is not excluded. Follow-up colonoscopy is recommended following therapy. No abscess or free intraperitoneal gas at this time. Meds: Cipro 400mg IVPB Q12H Flagyl 500mg IVPB Q8H Morphine 2mg IVP Q4H PRN for pain Zofran 4mg IVP Q6H PRN for n/v Status: Acute Priority: High (2) Urinary hesitancy Assessment and Plan: Possibly due to BPH CT abd/pelvis w/ contrast reiterated enlarged prostate gland Flomax 0.4mg PO QD Status: Chronic Priority: Medium (3) Constipation Assessment and Plan: Colace 100mg PO given in ED Will give miralax 17g PO tonight Monitor Status: Acute Priority: High (4) Smoking hx Assessment and Plan: Active smoker - 1 pack per day for past 50 years Nicotine patch TD 14mg/24hr Status: Chronic Priority: High (5) Prophylactic measure Assessment and Plan: Lovenox 40mg SC QD SCDs GI prophylaxis not indicated Status: Acute Priority: Low <Alexandro Mac - Last Filed: 09/18/17 19:36> Objective - Vital Signs/Intake and Output Vital Signs (last 24 hours): Temp Pulse Resp BP Pulse Ox 98.3 F 69 20 130/65 96 09/18/17 15:07 09/18/17 15:07 09/18/17 15:07 09/18/17 15:07 09/18/17 15:07 Intake and Output: 09/18/17 09/19/17 18:59 06:59 Intake Total 1000 Balance 1000 - Medications Medications: Current Medications Enoxaparin Sodium (Lovenox) 40 mg SC DAILY [facility] Last Admin: 09/18/17 09:25 Dose: 40 mg Ciprofloxacin (Cipro 400mg/200ml Dsw) 400 mg in 200 mls @ 133 mls/hr IVPB Q12H [facility] PRN Reason: Protocol Last Admin: 09/18/17 09:35 Dose: 133 mls/hr Metronidazole (Flagyl) 500 mg in 100 mls @ 100 mls/hr IVPB Q8 [facility] PRN Reason: Protocol Last Admin: 09/18/17 14:01 Dose: 100 mls/hr Sodium Chloride (Sodium Chloride 0.9%) 1,000 mls @ 125 mls/hr IV .Q8H [facility] Last Admin: 09/18/17 17:17 Dose: Not Given Morphine Sulfate (Morphine) 2 mg IVP Q4H PRN PRN Reason: Pain, severe (8-10) Nicotine (Nicoderm Cq) 1 patch TD DAILY [facility] Last Admin: 09/18/17 09:25 Dose: 1 patch Ondansetron HCl (Zofran Inj) 4 mg IVP Q6 PRN PRN Reason: Nausea/Vomiting Pneumococcal Polyvalent Vaccine (Pneumovax 23 Vaccine) 0.5 ml IM .ONCE ONE Stop: 09/20/17 10:01 Tamsulosin HCl (Flomax) 0.4 mg PO DAILY [facility] Last Admin: 09/18/17 09:25 Dose: 0.4 mg - Labs Labs: 09/18/17 06:41 09/18/17 06:41 Attending/Attestation - Attestation I have personally seen and examined this patient.: Yes I have fully participated in the care of the patient.: Yes I have reviewed all pertinent clinical information, including history, physical exam and plan: Yes Notes (Text): seen and examined this morning. His pain is much r Melchor is a 67 year old male with a PMHx of diverticulitis with associated perforation and associated colonic stricture diagnosed in 03/2017 (he denies other PMHx due to not having seen a doctor). In 03/2017 he was discharged with improvement in sx and was told to follow-up with GI for colonoscopy but patient never did. Today he presents with LLQ abdombetter,no complain,abdomen soft without tenderness We will start on clear liquids and observe on antibiotics Plan discussed with the residnet and agree with the documentation
[2017-09-18 16:07] VITALS: RESP 20
[2017-09-19] MEDS: Sodium Chloride 0.9% 1,000 ML IV SCH ×4 (03:22→20:50)
[2017-09-19] MEDS: metroNIDAZOLE IV 500 mg/100 ml 500 MG/100 ML BAG IVPB SCH ×3 (05:32→21:29)
[2017-09-19 08:51] LABS: BASO % 0.5 % (0.0-2.0); EOS # 0.1 K/uL (0.0-0.7); EOS % 1.4 % (0.0-4.0); HEMOGLOBIN 11.6 g/dL (12.0-18.0); LYMPH # 1.6 K/uL (1.0-4.3); LYMPH % 16.3 % (20.0-40.0); MEAN CELL VOLUME 86.7 fL (80.0-94.0); MEAN CORPUSCULAR HEMOGLOBIN 29.5 pg (27.0-31.0); MEAN PLATELET VOLUME 8.2 fL (7.2-11.7); MONO # 0.6 K/uL (0.0-0.8); MONO % 6.2 % (0.0-10.0); NEUT # 7.3 K/uL (1.8-7.0); NEUT % 75.6 % (50.0-75.0); RBC 3.95 Mil/uL (4.40-5.90); RED CELL DISTRIBUTION WIDTH 15.8 % (11.5-14.5); WHITE BLOOD COUNT 9.7 K/uL (4.8-10.8)
[2017-09-19 09:04] LABS: ALB/GLOB RATIO 1.3 (1.0-2.1); ALBUMIN 3.6 g/dL (3.5-5.0); ALT/SGPT 30 U/L (21-72); AST/SGOT 24 U/L (17-59); BLOOD UREA NITROGEN 11 mg/dL (9-20); CALCIUM 8.8 mg/dl (8.6-10.4); GFR AFRICAN-AMERICAN > 60; GFR NON-AFRICAN AMERICAN > 60
[2017-09-19] MEDS: Ciprofloxacin 400mg/200ml D5W 400 MG/200 ML BAG IVPB SCH ×2 (10:06→22:16)
[2017-09-19] MEDS: Enoxaparin 40 mg Syringe SC SCH (10:07)
--- NOTE | 2017-09-19 14:28 | CP.PCM.PN ---
Subjective - Date & Time of Evaluation Date of Evaluation: 09/19/17 Time of Evaluation: 14:24 - Subjective Subjective: PGY-[address] Mac. Last night patient stated he had an increase in pain and asked for the morphine which resolved his pain. This morning patient reported a large bowel movement and states he felt much much better after. Overall his abdominal pain has improved significantly. Tolerating clear liquid diet without problems. Did not offer any other complaints. Objective - Vital Signs/Intake and Output Vital Signs (last 24 hours): Temp Pulse Resp BP Pulse Ox 97.7 F 58 L 20 132/57 L 97 09/19/17 00:00 09/19/17 00:00 09/19/17 00:00 09/19/17 00:00 09/19/17 00:00 Intake and Output: 09/19/17 09/19/17 06:59 18:59 Intake Total 1040 1175 Balance 1040 1175 - Medications Medications: Current Medications Enoxaparin Sodium (Lovenox) 40 mg SC DAILY [facility] Last Admin: 09/19/17 10:07 Dose: Not Given Ciprofloxacin (Cipro 400mg/200ml Dsw) 400 mg in 200 mls @ 133 mls/hr IVPB Q12H [facility] PRN Reason: Protocol Last Admin: 09/19/17 10:06 Dose: 133 mls/hr Metronidazole (Flagyl) 500 mg in 100 mls @ 100 mls/hr IVPB Q8 [facility] PRN Reason: Protocol Last Admin: 09/19/17 05:32 Dose: 100 mls/hr Sodium Chloride (Sodium Chloride 0.9%) 1,000 mls @ 125 mls/hr IV .Q8H [facility] Last Admin: 09/19/17 09:55 Dose: 125 mls/hr Morphine Sulfate (Morphine) 2 mg IVP Q4H PRN PRN Reason: Pain, severe (8-10) Last Admin: 09/19/17 00:09 Dose: 2 mg Nicotine (Nicoderm Cq) 1 patch TD DAILY [facility] Last Admin: 09/19/17 10:07 Dose: 1 patch Ondansetron HCl (Zofran Inj) 4 mg IVP Q6 PRN PRN Reason: Nausea/Vomiting Pneumococcal Polyvalent Vaccine (Pneumovax 23 Vaccine) 0.5 ml IM .ONCE ONE Stop: 09/20/17 10:01 Tamsulosin HCl (Flomax) 0.4 mg PO DAILY [facility] Last Admin: 09/19/17 10:07 Dose: Not Given - Labs Labs: 09/19/17 08:40 09/19/17 08:40 - Additional Findings Additional findings: - Constitutional Appears: Well, Unkempt - Head Exam Head Exam: ATRAUMATIC, NORMAL INSPECTION - Eye Exam Eye Exam: EOMI Pupil Exam: PERRL - ENT Exam ENT Exam: Mucous Membranes Dry - Neck Exam Neck exam: Positive for: Full Rom - Respiratory Exam Respiratory Exam: Clear to Auscultation Bilateral, NORMAL BREATHING PATTERN. absent: Rales, Rhonchi, Wheezes - Cardiovascular Exam Cardiovascular Exam: REGULAR RHYTHM, +S1, +S2. absent: Bradycardia, Tachycardia , JVD, Systolic Murmur - GI/Abdominal Exam GI & Abdominal Exam: Normal Bowel Sounds, Soft, Tenderness. absent: Distended, Guarding, Rebound Additional comments: mild LLQ tenderness to palpation - Rectal Exam Rectal Exam: Deferred - Extremities Exam Extremities exam: Positive for: normal inspection. Negative for: calf tenderness - Back Exam Back exam: NORMAL INSPECTION. absent: CVA tenderness (L), CVA tenderness (R) - Neurological Exam Neurological exam: Alert, CN II-XII Intact, Oriented x3 - Psychiatric Exam Psychiatric exam: Normal Affect, Normal Mood - Skin Skin Exam: Intact, Normal Color, Warm Additional comments: Asymmetrical 1 inch brown mole on left paraspinal area on back at T8 Assessment and Plan (1) Acute diverticulitis Status: Acute (2) Urinary hesitancy Status: Chronic (3) Constipation Status: Acute (4) Smoking hx Status: Chronic (5) Prophylactic measure Status: Acute - Assessment and Plan (Free Text) Assessment: (1) Acute diverticulitis Assessment and Plan: Recurrent diverticulitis Admitted in 03/2017 and at that time was diagnosed with acute complicated descending colon diverticulitis with associated perforation and associated colonic stricture. Plan was to do outpatient colonoscopy but patient never followed-up with GI, Dr London. GI consult, Dr Vieira - will follow his recs * Patient seen by Dr Vieira - recommends repeat imaging if pain returns - otherwise d/c home and f/u for outpatient colonoscopy in 2 months NPO except meds -> advanced to clear liquids -> advanced to full liquids Imaging: CT abd/pelvis w/ contrast 09/14/2017: * 1. Acute subacute sigmoid diverticulitis affecting mid sigmoid colon without abscess or free air. Marked mural thickening is encountered in this segment and an underlying lesion is not excluded. Follow-up colonoscopy is recommended following therapy. No abscess or free intraperitoneal gas at this time. Meds: Cipro 400mg IVPB Q12H Flagyl 500mg IVPB Q8H Morphine 2mg IVP Q4H PRN for pain Zofran 4mg IVP Q6H PRN for n/v Status: Acute Priority: High (2) Urinary hesitancy Assessment and Plan: Possibly due to BPH CT abd/pelvis w/ contrast reiterated enlarged prostate gland Flomax 0.4mg PO QD Status: Chronic Priority: Medium (3) Constipation, Resolved Assessment and Plan: Colace 100mg PO given in ED Will give miralax 17g PO tonight Monitor Status: Acute Priority: High (4) Smoking hx Assessment and Plan: Active smoker - 1 pack per day for past 50 years Nicotine patch TD 14mg/24hr Status: Chronic Priority: High (5) Prophylactic measure Assessment and Plan: Lovenox 40mg SC QD SCDs GI prophylaxis not indicated Status: Acute Priority: Low
[2017-09-20] MEDS: metroNIDAZOLE IV 500 mg/100 ml 500 MG/100 ML BAG IVPB SCH (05:32)
[2017-09-20] MEDS: Sodium Chloride 0.9% 1,000 ML IV SCH ×2 (05:33→10:13)
[2017-09-20 07:26] LABS: BASO # 0.1 K/uL (0.0-0.2); BASO % 0.7 % (0.0-2.0); EOS # 0.2 K/uL (0.0-0.7); EOS % 2.1 % (0.0-4.0); HEMOGLOBIN 11.4 g/dL (12.0-18.0); LYMPH # 2.1 K/uL (1.0-4.3); LYMPH % 20.5 % (20.0-40.0); MEAN CORPUSCULAR HEMOGLOBIN 29.5 pg (27.0-31.0); MEAN CORPUSCULAR HGB CONC 34.2 g/dL (33.0-37.0); MEAN PLATELET VOLUME 8.1 fL (7.2-11.7); MONO # 0.8 K/uL (0.0-0.8); MONO % 8.4 % (0.0-10.0); NEUT # 6.8 K/uL (1.8-7.0); NEUT % 68.3 % (50.0-75.0); RBC 3.87 Mil/uL (4.40-5.90); RED CELL DISTRIBUTION WIDTH 15.6 % (11.5-14.5)
[2017-09-20 07:46] VITALS: BP 133/71; PULSE 61; TEMP 98; O2SAT 98
[2017-09-20 07:59] LABS: ALB/GLOB RATIO 1.3 (1.0-2.1); ALBUMIN 3.5 g/dL (3.5-5.0); ALT/SGPT 25 U/L (21-72); AST/SGOT 27 U/L (17-59); BLOOD UREA NITROGEN 7 mg/dL (9-20); CALCIUM 8.5 mg/dl (8.6-10.4); GFR AFRICAN-AMERICAN > 60; GFR NON-AFRICAN AMERICAN > 60
[2017-09-20] MEDS ORDERED: Pneumococcal 23-Valent Vaccine IM ONE (10:00)
[2017-09-20] MEDS: Enoxaparin 40 mg Syringe SC SCH (10:12)
[2017-09-20] MEDS: Ciprofloxacin 400mg/200ml D5W 400 MG/200 ML BAG IVPB SCH (10:15)
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
== END 2017-09-20 11:55 | disposition left against medical advice (07) | DRG 392 ==
LOC: C.ER 06:50 → C.9E 08:38 → UNDOADMOB 08:38 → C.9E 08:48 → UNDOADMOB 09:21 → C.9E 09:21 → C.3T 09:31 → C.9E 09:31 → INTOOBSV 09:34 → OBSVTOIN 09:34
PROVIDERS: ADMIT Internal Medicine; ATTEND Internal Medicine
DX: K57.32 Diverticulitis of large intestine without perforation or abscess without bleeding (principal); K59.00 Constipation, unspecified; N40.1 Benign prostatic hyperplasia with lower urinary tract symptoms; R39.11 Hesitancy of micturition; F17.210 Nicotine dependence, cigarettes, uncomplicated